=== PATIENT | female | born 1950 | race Caucasian/White ===

== ENCOUNTER 2017-07-13 20:13 | Inpatient (IN) | payer OTHER ==
[~2017-07-13] VITALS: Ht 152.4 cm; Wt 103.6 kg
[~2017-07-13 20:13] MED LIST: ASPI-435 PO; CALC500C70 PO; CARV12.52 PO; ERTA1INJ IV; FLUT50AE INH; HYZ/10015 PO; INSDGI SC; LISI-461 PO; LXP10 PO; MONT1TAB3 PO; MULT-506; NF1094 PO; NF656; NVLG; NVLGIPEN SC; NYSTCRE11; OXGN; POTA1POW; PRVC/40 PO; RSPS5 PO; SNTO30 TOP; SYMIN160 INH; VNTHFA/IN INH; ZNTT/150 PO
--- NOTE | 2017-07-13 20:30 | EMERGENCY ROOM VISIT NOTE ---
History Report prepared by Mayank: Melo Caba Under the Supervision of: Dr. Anat León D.O. First contact with patient: 20:18 Chief Complaint: RECTAL BLEEDING Stated Complaint: GI History of Present Illness The patient is a 67 year old female who presents to the Emergency Room with complaints of two episodes of rectal bleeding that began today. She was recently discharged with UTI, sepsis, and C-Diff two days ago. She followed up with [facility] and notes that she is doing well. However, she has been having diarrhea. Today, she had two episodes of diarrhea with dark red blood in the toilet bowl. She does not know if there were any clots present. She denies any fevers, chills, or abdominal pain/cramping. She is on 2L of oxygen at baseline. She has a PICC line in place for antibiotics. She notes that her appetite is improving. Source of History: patient Onset: Two days ago Position: other (GI) Symptom Intensity: 2 episodes Quality: other (Rectal Bleeding) Timing: intermittent Associated Symptoms: + diarrhea, No fevers, No chills, No abdominal pain Review of Systems See HPI for pertinent positives & negatives. A total of 10 systems reviewed and were otherwise negative. Past Medical & Surgical Medical Problems: (1) C. difficile colitis (2) Depression (3) Diabetes (4) Diabetes mellitus type 2, uncontrolled (5) Gastroparesis (6) UTI due to extended-spectrum beta lactamase (ESBL) producing Escherichia coli Surgical Problems: (1) Hx of cholecystectomy Family History Bladder cancer Diabetes mellitus Hypertension Myocardial infarction at age less than 60 Social History Smoking Status: Never Smoker Drug Use: none Marital Status: Occupation Status: retired Current/Historical Medications Scheduled Aspirin (Aspirin 81), 81 MG PO DAILY Bisacodyl (Bisacodyl), 10 MG FL DAILY Carvedilol (Coreg), 12.5 MG PO BID Collagenase (Santyl), 1 APPLN TOP DAILY Docusate Sodium (Docusate Sodium), 100 MG PO BID Ertapenem Sodium (Invanz), 1 GM IV Q24H Escitalopram Oxalate (Escitalopram Oxalate), 10 MG PO QAM Famotidine (Pepcid), 20 MG PO BID Fluticasone Furoate-Vilanterol (Breo Ellipta), 1 PUFF INH DAILY Glucagon (Glucagon Emergency Kit), 1 MG SC UD Hydrochlorothiazide (Hctz), 25 MG PO DAILY Insulin Aspart (Novolog Flexpen), 0 UNITS SC ACHS Insulin Glargine (Lantus), 15 UNITS SC QAM Lactobacillus Acidophilus (Floranex), 4 TAB PO TIDM Losartan Potassium (Cozaar), 100 MG PO DAILY Montelukast Sodium (Singulair), 10 MG PO DAILY Multiple Vitamins W/ Minerals (Multi Vitamin and Mineral), 1 TAB PO DAILY Potassium Chloride (Potassium Chloride ER), 20 MEQ PO DAILY Pravastatin Sod (Pravastatin Sodium), 40 MG PO HS Sennosides-Docusate Sodium (Docusate Sodium/Senna), 1 TAB PO QDL Vancomycin HCl (Vancomycin HCl), 125 MG PO QID Scheduled PRN Acetaminophen (Tylenol), 500 MG PO Q4 PRN for Pain Albuterol Hfa (Ventolin Hfa), 2-4 PUFFS INH Q6H PRN for Magnesium Hydroxide (Milk of Magnesia), 30 ML PO DAILY PRN for Polyethylene Glycol 3350 (Miralax), 17 GM PO DAILY PRN for Sodium Phosphates (Enema), 133 ML FL DAILY PRN for Miscellaneous Medications [Glucose Oral Gel], Unknown Dose Allergies Coded Allergies: Clarithromycin (Verified Allergy, Intermediate, RASH, 07/13/17) Doxycycline (Unverified Allergy, Intermediate, UNKNOWN, 07/13/17) Promethazine (Verified Allergy, Mild, MUSCLE CRAMPS, 07/13/17) Adhesives (Verified Allergy, Unknown, SKIN TEARS, 07/13/17) Clindamycin (Verified Allergy, Unknown, MUSCLE CRAMPS, 07/13/17) Simvastatin (Verified Allergy, Unknown, MUSCLE CRAMPS, 07/13/17) Sulfa Antibiotics (Verified Allergy, Unknown, RASH, 07/13/17) Erythromycin (Verified Adverse Reaction, Mild, NAUSEA, 07/13/17) Physical Exam Vital Signs Date Time Temp Pulse Resp B/P (MAP) Pulse Ox O2 Delivery O2 Flow Rate FiO2 07/13/17 22:37 89 17 140/68 100 Room Air 07/13/17 20:31 87 07/13/17 20:17 37.4 99 18 154/59 100 Nasal Cannula 2.0 Physical Exam GENERAL: alert, pale appearing, well nourished, no distress, non-toxic EYE EXAM: normal conjunctiva, PERRL and EOM's grossly intact OROPHARYNX: no exudate, no erythema, lips, buccal mucosa, and tongue normal and mucous membranes are moist NECK: supple, no nuchal rigidity, no adenopathy, non-tender LUNGS: Clear to auscultation. Normal chest wall mechanics HEART: no murmurs, S1 normal and S2 normal ABDOMEN: abdomen soft and obese, non-tender, normo-active bowel sounds, no masses, no rebound or guarding. BACK: Back is symmetrical on inspection and there is no deformity, no midline tenderness, no CVA tenderness. SKIN: no rashes and no bruising UPPER EXTREMITIES: upper extremities are grossly normal. LOWER EXTREMITIES: Trace bilateral pitting edema. N/V intact distally. NEURO EXAM: Normal sensorium, cranial nerves II-XII grossly intact, normal speech, no gross weakness of arms, no gross weakness of legs. Medical Decision & Procedures ER Provider Diagnostic Interpretation: ABD/PELVIS NO IV OR ORAL CONT CT DOSE: 1546.84 mGy.cm HISTORY: Bowel change gi bleed, recent c.diff, diarrhea TECHNIQUE: Multiaxial CT images of the abdomen and pelvis were performed without contrast. A dose lowering technique was utilized adhering to the principles of ALARA. COMPARISON STUDY: 07/06/2017 FINDINGS: Lung bases are clear. Liver spleen and pancreas are unremarkable. There is extensive calcification of the upper abdominal arterial vasculature. There are stable postoperative changes of the lumbar spine. There is no evidence renal hydronephrosis. There is fluid within the small bowel as well as colon. No evidence for bowel obstruction. Scattered colonic diverticuli with no evidence diverticulitis. Artifact obscuring detail within the low pelvis from bilateral total hip arthroplasties. IMPRESSION: 1. Fluid within the colon and to lesser extent small bowel suggesting a nonspecific enteritis and possibly colitis. 2. No evidence for obstructive change. 3. No evidence for abscess or collection. The above report was generated using voice recognition software. It may contain grammatical, syntax or spelling errors. Electronically signed by: Freddy Rodriguez M.D. 07/14/2017 6:42 AM Dictated Date/Time: 07/14/2017 6:38 AM Laboratory Results 07/13/17 20:22 Red Blood Count 2.87, Mean Corpuscular Volume 88.5, Mean Corpuscular Hemoglobin 28.6, Mean Corpuscular Hemoglobin Concent 32.3, Mean Platelet Volume 8.8, Neutrophils (%) (Auto) 69.5, Lymphocytes (%) (Auto) 18.9, Monocytes (%) (Auto) 8.2, Eosinophils (%) (Auto) 1.8, Basophils (%) (Auto) 0.2, Neutrophils # (Auto) 8.59, Lymphocytes # (Auto) 2.34, Monocytes # (Auto) 1.01, Eosinophils # (Auto) 0.22, Basophils # (Auto) 0.03 Test 07/13/17 20:22 07/13/17 20:23 White Blood Count 12.36 K/uL (4.8-10.8) Red Blood Count 2.87 M/uL (4.2-5.4) Hemoglobin 8.2 g/dL (12.0-16.0) Hematocrit 25.4 % (37-47) Mean Corpuscular Volume 88.5 fL (80-100) Mean Corpuscular Hemoglobin 28.6 pg (25-34) Mean Corpuscular Hemoglobin Concent 32.3 g/dl (32-36) Platelet Count 263 K/uL (130-400) Mean Platelet Volume 8.8 fL (7.4-10.4) Neutrophils (%) (Auto) 69.5 % Lymphocytes (%) (Auto) 18.9 % Monocytes (%) (Auto) 8.2 % Eosinophils (%) (Auto) 1.8 % Basophils (%) (Auto) 0.2 % Neutrophils # (Auto) 8.59 K/uL (1.4-6.5) Lymphocytes # (Auto) 2.34 K/uL (1.2-3.4) Monocytes # (Auto) 1.01 K/uL (0.11-0.59) Eosinophils # (Auto) 0.22 K/uL (0-0.5) Basophils # (Auto) 0.03 K/uL (0-0.2) RDW Standard Deviation 43.9 fL (36.4-46.3) RDW Coefficient of Variation 13.5 % (11.5-14.5) Immature Granulocyte % (Auto) 1.4 % Immature Granulocyte # (Auto) 0.17 K/uL (0.00-0.02) Polychromasia 1+ Prothrombin Time 12.1 SECONDS (9.0-12.0) Prothromb Time International Ratio 1.1 (0.9-1.1) Total Bilirubin 0.2 mg/dl (0.2-1) Aspartate Amino Transf (AST/SGOT) 19 U/L (15-37) Alanine Aminotransferase (ALT/SGPT) 24 U/L (12-78) Alkaline Phosphatase 92 U/L (45-117) Total Protein 6.1 gm/dl (6.4-8.2) Albumin 2.3 gm/dl (3.4-5.0) Globulin 3.8 gm/dl (2.5-4.0) Albumin/Globulin Ratio 0.6 (0.9-2) Lipase 113 U/L (73-393) Bedside Lactic Acid Venous 1.38 mmol/L (0.90-1.70) Laboratory results per my review. Medications Administered Medications (Trade) Dose Ordered Sig/Javon Route Start Time Stop Time Status Last Admin Dose Admin Lactated Ringer's 1,000 ml @ 200 mls/hr Q5H STAT IV 07/13/17 22:03 07/14/17 00:38 DC 07/13/17 22:03 200 MLS/HR ED Course 2018: The patient was evaluated in room C4. A complete history and physical exam was performed. 2156: The patient has had two more grossly bloody bowel movements. On reexamination, she denies any abdominal pain. 2202: Ordered Lactated Ringer's 1000 ml @ 200 mls/hr IV. Upon reevaluation, the patient is resting. I discussed the findings and the treatment plan with the patient. She expresses agreement and understanding. I spoke with Dr. Starks of the [facility]. She will be evaluated for further management. Medical Decision Differential diagnosis: Etiologies such as diverticulosis, AVM, coagulopathy, colitis, inflammatory bowel disease, malignancy, Tiffanie-Ross tear, esophagitis, peptic ulcer disease , variceal bleed, gastritis, epistaxis, fissure, hemorrhoids, as well as others were entertained. Patient with GI bleed noted here. Had 2 episodes of grossly bloody stool. No recurrent abdominal pain, no nausea or vomiting, no fevers or chills. Patient hemodynamically stable throughout. Patient still on an aspirin daily. Recent CT scan 1 week ago also showed moderate diverticulosis without diverticulitis. Possible patient now having diverticular bleed. Possible patient having bleed secondary to C. difficile colitis at this time. No current symptoms to suggest peptic ulcer disease or upper GI bleed. Patient H&H lower than at time of discharge also. No thrombocytopenia. No liver failure. Patient has denied noting blood from any other source. Patient admitted for continuing monitoring and possible GI evaluation. Renal dysfunction stable compared to prior. Medication Reconcilliation Current Medication List: was personally reviewed by me Blood Pressure Screening Patient's blood pressure: Elevated blood pressure Blood pressure disposition: Elevated BP felt to be situational Consults Time Called: 2199 Consulting Physician: Dr. Tereza TO Returned Call: [phone] I reviewed the patient's case with him. He will evaluate the patient for further management. Impression Primary Impression: GI bleed Additional Impressions: Diarrhea Anemia Renal insufficiency Hyperglycemia C. difficile colitis Scribe Attestation The scribe's documentation has been prepared under my direction and personally reviewed by me in its entirety. I confirm that the note above accurately reflects all work, treatment, procedures, and medical decision making performed by me. Departure Information Dispostion Being Evaluated By Hospitalist Shade Duarte (PCP) Patient Instructions My [facility] Problem Qualifiers Primary Impression: GI bleed GI bleed type/associated pathology: unspecified gastrointestinal hemorrhage type Qualified Codes: K92.2 - Gastrointestinal hemorrhage, unspecified Additional Impressions: Diarrhea Diarrhea type: unspecified type Qualified Codes: R19.7 - Diarrhea, unspecified Anemia Anemia type: unspecified type Qualified Codes: D64.9 - Anemia, unspecified
[2017-07-13 20:54] LABS: HEMATOCRIT 25.4 % (37-47); MEAN CELL VOLUME 88.5 fL (80-100); MEAN CORPUSCULAR HEMOGLOBIN 28.6 pg (25-34); MEAN CORPUSCULAR HGB CONC 32.3 g/dl (32-36); MEAN PLATELET VOLUME 8.8 fL (7.4-10.4); PLATELET COUNT 263 K/uL (130-400); RED BLOOD COUNT 2.87 M/uL (4.2-5.4); WHITE BLOOD COUNT 12.36 K/uL (4.8-10.8)
[2017-07-13 21:04] LABS: INR 1.1 (0.9-1.1); PROTHROMBIN TIME (PATIENT) 12.1 SECONDS (9.0-12.0)
[2017-07-13 21:12] LABS: CALCIUM 7.9 mg/dl (8.5-10.1); CREATININE 1.47 mg/dl (0.60-1.20); POTASSIUM 4.2 mmol/L (3.5-5.1)
[2017-07-13 21:14] LABS: BASO % 0.2 %; BASO ABS # 0.03 K/uL (0-0.2); COMPLETE YES; EOS % 1.8 %; IG% 1.4 %; LYMPH % 18.9 %; LYMPH ABS # 2.34 K/uL (1.2-3.4); MONO % 8.2 %; NEUT % 69.5 %; POLYCHROMASIA 1+
[2017-07-13 21:15] LABS: ALB/GLOB RATIO 0.6 (0.9-2)
[2017-07-13] MEDS ORDERED: MOMLX PO (21:27)
[2017-07-13] MEDS ORDERED: HYDR25TA4 PO (21:27)
[2017-07-13] MEDS ORDERED: ACET-1256 PO (21:27)
[2017-07-13] MEDS ORDERED: GLUCOSE (21:27)
[2017-07-13] MEDS ORDERED: LCTX PO (21:27)
[2017-07-13] MEDS ORDERED: FAMO20TA11 PO (21:27)
[2017-07-13] MEDS ORDERED: POLY335019 PO (21:27)
[2017-07-13] MEDS ORDERED: SENN8.6T36 PO (21:27)
[2017-07-13] MEDS ORDERED: FLUT1INH INH (21:27)
[2017-07-13] MEDS ORDERED: MCRK/20 PO (21:27)
[2017-07-13] MEDS ORDERED: LOSA1TAB38 PO (21:27)
[2017-07-13] MEDS ORDERED: DOCU100C31 PO (21:27)
[2017-07-13] MEDS ORDERED: GLGKIT SC (21:27)
[2017-07-13] MEDS ORDERED: MULT-1042 PO (21:27)
[2017-07-13] MEDS ORDERED: BISA10SU5 PR (21:27)
[2017-07-13] MEDS ORDERED: SODI1ENE21 PR (21:27)
[2017-07-13] MEDS ORDERED: LACTATED RINGER'S 1000ML 1,000 ML IV STA (22:03)
--- NOTE | 2017-07-13 22:27 | History and Physical ---
History & Physical Date & Time of Service: Jul 13, 2017 at 22:15 Chief Complaint: GI Primary Care Physician: Shade Riddle History of Present Illness Source: patient 67 y/o F Hx COPD, HTN, CAD, DMII, gastroparesis, CKD III, anemia, obese - recently D/Cd following admission for Urosepsis with ESBL in addition to Cdiff which emerged during hospitalization. Pt has had persistent diarrhea for over one wk and today developed hematochezia describing dark, red bowel movements. She denies abdominal pain, N/V, lightheadedness, palpitations or fevers. The pt has a port owing to long-term treatment for ESBL with Ertapenem. She is taking oral Vancomycin for C-diff. It is noted that in May 22 the pt was life-flighted to [place] due to critical PNM and had spent 2 weeks in rehab when she was transferred back to the hospital due to the above UTI. Past Medical/Surgical History 1) DM II 2) DONG - CPAP 3) COPD 2-4 L 02 continuous 4) Asthma 5) HTN 6) CAD s/p 1 stent 7) HLD 8) GERD 9) Gastroparesis 10) CKD III 11) Anemia - baseline Hb 10 12) C diff 06/21 13) ESBL UTI 06/21 14) Obese Family History Bladder cancer Diabetes mellitus Hypertension Myocardial infarction at age less than 60 Social History Smoking Status: Never Smoker Drug Use: none Marital Status: Housing status: lives with significant other Occupational Status: retired Immunizations History of Influenza Vaccine: Yes History of Tetanus Vaccine?: Yes History of Pneumococcal: Yes History of Hepatitis B Vaccine: Yes Multi-Drug Resistant Organisms History of MDRO: No Allergies Coded Allergies: Clarithromycin (Verified Allergy, Intermediate, RASH, 07/13/17) Doxycycline (Unverified Allergy, Intermediate, UNKNOWN, 07/13/17) Promethazine (Verified Allergy, Mild, MUSCLE CRAMPS, 07/13/17) Adhesives (Verified Allergy, Unknown, SKIN TEARS, 07/13/17) Clindamycin (Verified Allergy, Unknown, MUSCLE CRAMPS, 07/13/17) Simvastatin (Verified Allergy, Unknown, MUSCLE CRAMPS, 07/13/17) Sulfa Antibiotics (Verified Allergy, Unknown, RASH, 07/13/17) Erythromycin (Verified Adverse Reaction, Mild, NAUSEA, 07/13/17) Home Medications Scheduled Aspirin (Aspirin 81), 81 MG PO DAILY Bisacodyl (Bisacodyl), [address] DAILY Carvedilol (Coreg), 12.5 MG PO BID Collagenase (Santyl), 1 APPLN TOP DAILY Docusate Sodium (Docusate Sodium), 100 MG PO BID Ertapenem Sodium (Invanz), 1 GM IV Q24H Escitalopram Oxalate (Escitalopram Oxalate), 10 MG PO QAM Famotidine (Pepcid), 20 MG PO BID Fluticasone Furoate-Vilanterol (Breo Ellipta), 1 PUFF INH DAILY Glucagon (Glucagon Emergency Kit), 1 MG SC UD Hydrochlorothiazide (Hctz), 25 MG PO DAILY Insulin Aspart (Novolog Flexpen), 0 UNITS SC ACHS Insulin Glargine (Lantus), 15 UNITS SC QAM Lactobacillus Acidophilus (Floranex), 4 TAB PO TIDM Losartan Potassium (Cozaar), 100 MG PO DAILY Montelukast Sodium (Singulair), 10 MG PO DAILY Multiple Vitamins W/ Minerals (Multi Vitamin and Mineral), 1 TAB PO DAILY Potassium Chloride (Potassium Chloride ER), 20 MEQ PO DAILY Pravastatin Sod (Pravastatin Sodium), 40 MG PO HS Sennosides-Docusate Sodium (Docusate Sodium/Senna), 1 TAB PO QDL Vancomycin HCl (Vancomycin HCl), 125 MG PO QID Scheduled PRN Acetaminophen (Tylenol), 500 MG PO Q4 PRN for Pain Albuterol Hfa (Ventolin Hfa), 2-4 PUFFS INH Q6H PRN for Magnesium Hydroxide (Milk of Magnesia), 30 ML PO DAILY PRN for Polyethylene Glycol 3350 (Miralax), 17 GM PO DAILY PRN for Sodium Phosphates (Enema), [address] DAILY PRN for Miscellaneous Medications [Glucose Oral Gel], Unknown Dose Review of Systems Constitutional: No fever, No chills, No sweats Eyes: No worsening of vision ENT: No hearing loss, No unusual epistaxis, No nasal symptoms Respiratory: No cough, No sputum, No wheezing Cardiovascular: No chest pain, No PND Abdomen: + diarrhea, + GI bleeding, No pain, No vomiting Musculoskeletal: No joint pain Genitourinary - Female: No dysuria, No urinary frequency, No urinary urgency, No urinary incontinence Neurologic: No memory loss, No paralysis, No weakness Psychiatric: No depression symptoms Endocrine: No fatigue Hematologic / Lymphatic: No abnormal bleeding/bruising Integumentary: No rash Allergic / Immunologic: No environmental allergies Physical Exam Vital Signs Date Time Temp Pulse Resp B/P (MAP) Pulse Ox O2 Delivery O2 Flow Rate FiO2 07/13/17 20:31 87 07/13/17 20:17 37.4 99 18 154/59 100 Nasal Cannula 2.0 General Appearance: WD/WN, no apparent distress Head: normocephalic Eyes: normal inspection ENT: normal ENT inspection, pharynx normal Neck: supple, no JVD Respiratory/Chest: chest non-tender, + pertinent finding (Poor air entry and moveemnt b/l - no crackles or wheezing ) Cardiovascular: regular rate, rhythm, no edema, no gallop Abdomen/GI: normal bowel sounds, non tender, soft Back: normal inspection, no CVA tenderness Extremities/Musculoskelatal: normal inspection, no calf tenderness, normal capillary refill, no pedal edema, normal range of motion Neurologic/Psych: public relations sales marketing II-XII nml as tested, no motor/sensory deficits, alert, oriented x 3 Skin: normal color, warm/dry Lymphatic: no adenopathy Diagnostics Laboratory Results Results Past 24 Hours Test 07/13/17 20:22 07/13/17 20:23 Range/Units White Blood Count 12.36 4.8-10.8 K/uL Red Blood Count 2.87 4.2-5.4 M/uL Hemoglobin 8.2 12.0-16.0 g/dL Hematocrit 25.4 37-47 % Mean Corpuscular Volume 88.5 80-100 fL Mean Corpuscular Hemoglobin 28.6 25-34 pg Mean Corpuscular Hemoglobin Concent 32.3 32-36 g/dl Platelet Count 263 130-400 K/uL Mean Platelet Volume 8.8 7.4-10.4 fL Neutrophils (%) (Auto) 69.5 % Lymphocytes (%) (Auto) 18.9 % Monocytes (%) (Auto) 8.2 % Eosinophils (%) (Auto) 1.8 % Basophils (%) (Auto) 0.2 % Neutrophils # (Auto) 8.59 1.4-6.5 K/uL Lymphocytes # (Auto) 2.34 1.2-3.4 K/uL Monocytes # (Auto) 1.01 0.11-0.59 K/uL Eosinophils # (Auto) 0.22 0-0.5 K/uL Basophils # (Auto) 0.03 0-0.2 K/uL RDW Standard Deviation 43.9 36.4-46.3 fL RDW Coefficient of Variation 13.5 11.5-14.5 % Immature Granulocyte % (Auto) 1.4 % Immature Granulocyte # (Auto) 0.17 0.00-0.02 K/uL Polychromasia 1+ Prothrombin Time 12.1 9.0-12.0 SECONDS Prothromb Time International Ratio 1.1 0.9-1.1 Sodium Level 139 136-145 mmol/L Potassium Level 4.2 3.5-5.1 mmol/L Chloride Level 100 98-107 mmol/L Carbon Dioxide Level 33 21-32 mmol/L Anion Gap 6.0 3-11 mmol/L Blood Urea Nitrogen 31 7-18 mg/dl Creatinine 1.47 0.60-1.20 mg/dl Est Creatinine Clear Calc Drug Dose 39.7 ml/min Estimated GFR () 42.1 Estimated GFR (Non- 36.3 BUN/Creatinine Ratio 21.0 10-20 Random Glucose 229 70-99 mg/dl Calcium Level 7.9 8.5-10.1 mg/dl Total Bilirubin 0.2 0.2-1 mg/dl Aspartate Amino Transf (AST/SGOT) 19 15-37 U/L Alanine Aminotransferase (ALT/SGPT) 24 12-78 U/L Alkaline Phosphatase 92 45-117 U/L Total Protein 6.1 6.4-8.2 gm/dl Albumin 2.3 3.4-5.0 gm/dl Globulin 3.8 2.5-4.0 gm/dl Albumin/Globulin Ratio 0.6 0.9-2 Lipase 113 73-393 U/L Bedside Lactic Acid Venous 1.38 0.90-1.70 mmol/L Impression Assessment and Plan 67 y/o F Hx COPD, HTN, CAD, DMII, gastroparesis, CKD III, anemia, obese - recently D/Cd following admission for Urosepsis with ESBL in addition to Cdiff which emerged during hospitalization. Pt has had persistent diarrhea for over one wk and today developed hematochezia describing dark, red bowel movements. She denies abdominal pain, N/V, lightheadedness, palpitations or fevers. The pt has a port owing to long-term treatment for ESBL with Ertapenem. She is taking oral Vancomycin for C-diff. It is noted that in May 22 the pt was life-flighted to [place] due to critical PNM and had spent 2 weeks in rehab when she was transferred back to the hospital due to the above UTI. 1) GI bleed and anemia - Hb has decreased 2 pts - source of bleed, upper vs lower not clear as stool is dark red. We will obtain a CT abdomen and if no lower GI pathology is obvious, we will place her on a PPi drip - a bolus was provided pending results. GI and possibly surgery will be consulted. She has a history of CAD and CKD and a recent tendency to decompensate so that we will transfuse 2 units PRBCs. She will be assigned to telemetry overnight. 2) C diff - stool studies will be repeated - she will remain on Vanc - if + we will add Flagyl and would consider more aggressive treatment if colitis is present on imaging. 3) ESBL UTI - cont Ertapenem 4) COPD - no evidence of acute exacerbation - denies SOB above baseline - cont prescribed inhalers and an 02 protocol 5) CKD - creat is approximately at baseline - we will trend daily 6) CAD - no evidence of ACS - ASA is held - assigned to telemetry 7) DONG - CPAP provided HS 8) DM II - placed on SS Full code - Heparin prophylaxis Total time for this admit including review of recent record, labs, meds - discussion with pt and ER attending 45 min Level of Care Telemetry Resuscitation Status FULL RESUSCITATION VTE Prophylaxis Given or contraindicated: SCD's
[2017-07-13] MEDS ORDERED: ERTAPENEM 1 GM ADDVIAL IV SCH (22:30)
[2017-07-13] MEDS ORDERED: ALBUTEROL HFA 8 GM INHALER INH PRN (22:30)
[2017-07-13] MEDS ORDERED: MAGNESIUM HYDROXIDE SUSP 30 ML UDC PO PRN ×2 (22:30→23:00)
[2017-07-13] MEDS ORDERED: ONDANSETRON INJ 2 MG/ML 2 ML VIAL IV PRN (23:00)
[2017-07-13] MEDS ORDERED: ZOLPIDEM TARTRATE 5 MG TAB PO PRN (23:00)
[2017-07-13] MEDS ORDERED: ALUMINUM/MAGNESIUM/SIMETH (MAALOX MAX) 30 ML UDC PO PRN (23:00)
[2017-07-13] MEDS ORDERED: ACETAMINOPHEN 325 MG TAB PO PRN (23:00)
[2017-07-13] MEDS ORDERED: MAGNESIUM SULFATE 1GM / D5W 1 GM in PREMIXED IN D5W 100 ML IV STA (23:01)
[2017-07-13] MEDS ORDERED: MAGNESIUM SULFATE 1GM / D5W 1 GM BAG ONE (23:15)
[2017-07-13 23:34] VITALS: BP 184/83; PULSE 83; TEMP 36.8; O2SAT 96; BMI 43.0
[2017-07-14] VITALS (15 sets, daily range): BP systolic 122–169; BP diastolic 74–85; PULSE 65–79; TEMP 36.5–37.2; O2SAT 94–98
[2017-07-14] MEDS ORDERED: PANTOprazole INJ 80 MG in DEXTROSE 5% 100ML 100 ML IV ONE (01:00)
[2017-07-14] MEDS: INSULIN ASPART 100 UNITS/ML 3 ML PEN SC SCH ×4 (01:28→20:31)
[2017-07-14] MEDS: PANTOprazole INJ 40 MG in DEXTROSE 5% 100ML IV SCH ×2 (03:04→10:15)
[2017-07-14 04:34] LABS: CALCIUM 7.7 mg/dl (8.5-10.1); CREATININE 1.51 mg/dl (0.60-1.20); MAGNESIUM 1.3 mg/dl (1.8-2.4); POTASSIUM 4.3 mmol/L (3.5-5.1)
[2017-07-14] MEDS: MAGNESIUM SULFATE 1GM / D5W 1 GM in PREMIXED IN D5W 100 ML IV SCH ×4 (05:34→10:28)
--- NOTE | 2017-07-14 06:43 | DIAGNOSTIC IMAGING REPORT ---
ABD/PELVIS NO IV OR ORAL CONT CT DOSE: 1546.84 mGy.cm HISTORY: Bowel change gi bleed, recent c.diff, diarrhea TECHNIQUE: Multiaxial CT images of the abdomen and pelvis were performed without contrast. A dose lowering technique was utilized adhering to the principles of ALARA. COMPARISON STUDY: 07/06/2017 FINDINGS: Lung bases are clear. Liver spleen and pancreas are unremarkable. There is extensive calcification of the upper abdominal arterial vasculature. There are stable postoperative changes of the lumbar spine. There is no evidence renal hydronephrosis. There is fluid within the small bowel as well as colon. No evidence for bowel obstruction. Scattered colonic diverticuli with no evidence diverticulitis. Artifact obscuring detail within the low pelvis from bilateral total hip arthroplasties. IMPRESSION: 1. Fluid within the colon and to lesser extent small bowel suggesting a nonspecific enteritis and possibly colitis. 2. No evidence for obstructive change. 3. No evidence for abscess or collection. The above report was generated using voice recognition software. It may contain grammatical, syntax or spelling errors. Electronically signed by: Freddy Rodriguez M.D. 07/14/2017 6:42 AM Dictated Date/Time: 07/14/2017 6:38 AM
[2017-07-14] MEDS: BISACODYL 10 MG SUPP PR SCH (08:16)
[2017-07-14] MEDS: MONTELUKAST SOD 10 MG TAB PO SCH (08:21)
[2017-07-14] MEDS: FAMOTIDINE 20 MG TAB PO SCH ×2 (08:21→19:52)
[2017-07-14] MEDS: CARVEDILOL 12.5 MG TAB PO SCH ×2 (08:21→19:52)
[2017-07-14] MEDS: COLLAGENASE OINT 30 GM TUBE EXT SCH (08:22)
[2017-07-14] MEDS: LOSARTAN POTASSIUM 50 MG TAB PO SCH (08:22)
[2017-07-14] MEDS: ESCITALOPRAM OXALATE 10 MG TAB PO SCH (08:22)
[2017-07-14] MEDS: RASPBERRY SYRUP 5 ML UDP PO SCH ×4 (08:24→20:27)
[2017-07-14] MEDS ORDERED: VANCOMYCIN HCL 250 MG/5 ML SOLN PO SCH (09:00)
[2017-07-14] MEDS ORDERED: POTASSIUM CHLORIDE 20 MEQ TABCR PO SCH (09:00)
[2017-07-14] MEDS ORDERED: RASPBERRY SYRUP 5 ML UDP PO SCH (09:00)
[2017-07-14] MEDS: VANCOMYCIN HCL 125 MG/2.5ML SOLN PO SCH ×4 (09:00→20:27)
--- NOTE | 2017-07-14 09:54 | Gastrointestinal Consultation ---
Gastrointestinal Consultation Date of Consultation: Jul 14, 2017 Attending Physician: Dr. Guidry Consulting Physician: Marlyn Vazquez PA-C Reason for Consultation: "hematochezia & C diff" History of Present Illness Patient is a 67 year old female with a past medical history of COPD, CAD, HTN, DM2, gastroparesis, CKD 3, anemia & morbid obesity who presented back to the hospital after a recent admission for UTI sepsis with ESBL. During that visit she was diagnosed with C diff She has been on Vancomycin since 07/08. She reports she has diarrhea 5-6 times per day, however she reports that since hospitalization she has not been having stool, just bleeding. She reports to me that she is having dark black stools that have occurred on several occasions since last night. Physician reports indicate hematochezia and nursing reports a esthela-like stool. She denies abdominal pain. She had an unremarkable CT scan. She reports her last colonoscopy was 2 years ago and was performed by Dr. Wright of general surgery in [place]. She reports that the only unusual finding was diverticulosis. She denies fevers or chills at present. She reports a daily baby Aspirin 81 mg daily. She denies a family history of GI malignancy. She is on Protonix at the present time. She continues on Vancomycin for her C diff. Her H/H was 8.2/25.4 last evening. Her baseline is unclear as we do not have access to her outpatient records. Since transfusion of 2 units PRBCs her hemoglobin has improved to 9.4. A CT scan of her abdomen/pelvis indicates colitis. She offers no further complaints at present. Past Medical/Surgical History Medical Problems: (1) Acute renal failure Status: Acute (2) Anemia Status: Acute (3) Dehydration Status: Acute (4) Diarrhea Status: Acute (5) GI bleed Status: Acute (6) Hyperglycemia Status: Acute (7) Hypomagnesemia Status: Acute (8) Renal insufficiency Status: Acute (9) UTI (urinary tract infection) Status: Acute Past Medical History: Diabetes Mellitus type 2, DONG, COPD on 2-4 L O2 continuously, asthma, hypertension, CAD, HLD, GERD, gastroparesis, CKD 3, anemia with a report in the chart of a baseline of 10, C diff ongoing since 06/21, ESBL UTI, Morbid obesity Past Surgical History: Cardiac stenting, EGD, Colonoscopy Family History Bladder cancer Diabetes mellitus Hypertension Myocardial infarction at age less than 60 Social History Smoking Status: Never Smoker Drug Use: none Marital Status: Occupation Status: retired Allergies Coded Allergies: Clarithromycin (Verified Allergy, Intermediate, RASH, 07/13/17) Doxycycline (Unverified Allergy, Intermediate, UNKNOWN, 07/13/17) Promethazine (Verified Allergy, Mild, MUSCLE CRAMPS, 07/13/17) Adhesives (Verified Allergy, Unknown, SKIN TEARS, 07/13/17) Clindamycin (Verified Allergy, Unknown, MUSCLE CRAMPS, 07/13/17) Simvastatin (Verified Allergy, Unknown, MUSCLE CRAMPS, 07/13/17) Sulfa Antibiotics (Verified Allergy, Unknown, RASH, 07/13/17) Erythromycin (Verified Adverse Reaction, Mild, NAUSEA, 07/13/17) Current Medications Home Meds and Scripts Medications Dose Route/Sig Max Daily Dose Days Date Category Dose Instructions Enema (Sodium Phosphates) 1 Clarita Clarita 133 Ml AR DAILY PRN 07/13/17 Reported Miralax (Polyethylene Glycol 3350) 1 Pow Pow 17 Gm PO DAILY PRN 07/13/17 Reported Milk of Magnesia (Magnesium Hydroxide) 30 Ml Susp 30 Ml PO DAILY PRN 07/13/17 Reported [Glucose Oral Gel] Unknown Dose 07/13/17 Reported Glucagon Emergency Kit (Glucagon) 1 Mg Kit 1 Mg SC UD 07/13/17 Reported Docusate Sodium 100 Mg Cap 100 Mg PO BID 07/13/17 Reported Bisacodyl 10 Mg Sup 10 Mg AR DAILY 07/13/17 Reported Tylenol (Acetaminophen) 500 Mg Tab 500 Mg PO Q4 PRN 07/13/17 Reported Potassium Chloride ER (Potassium Chloride) 20 Meq Tabcr 20 Meq PO DAILY 07/13/17 Reported Cozaar (Losartan Potassium) 100 Mg Tab 100 Mg PO DAILY 07/13/17 Reported Floranex (Lactobacillus Acidophilus) 1 Tab Tab 4 Tab PO TIDM 07/13/17 Reported LACTOBACILLUS ACIDOPHILLUS AND BULGARICUS Hctz (Hydrochlorothiazide) 25 Mg Tab 25 Mg PO DAILY 07/13/17 Reported Breo Ellipta (Fluticasone Furoate-Vilanterol) 1 Inh Inh 1 Puff INH DAILY 07/13/17 Reported Pepcid (Famotidine) 20 Mg Tab 20 Mg PO BID 07/13/17 Reported Docusate Sodium/Senna (Sennosides-Docusate Sodium) 1 Tab Tab 1 Tab PO QDL 07/13/17 Reported Multi Vitamin and Mineral (Multiple Vitamins W/ Minerals) 1 Tab Tab 1 Tab PO DAILY 07/13/17 Reported Novolog Flexpen (Insulin Aspart) 100 Units/Ml Inj 0 Units SC ACHS 30 07/11/17 Rx Escitalopram Oxalate 10 Mg Tab 10 Mg PO QAM 30 07/11/17 Rx Invanz (Ertapenem Sodium) 1 Gm Inj 1 Gm IV Q24H 12 07/11/17 Rx Vancomycin HCl 100 Mg/Ml Inj 125 Mg PO QID 12 07/11/17 Rx Lantus (Insulin Glargine) 100 Unit/Ml Inj 15 Units SC QAM 07/06/17 Reported Santyl (Collagenase) 250 Unit/Gm Oin 1 Appln TOP DAILY 07/06/17 Reported Coreg (Carvedilol) 12.5 Mg Tab 12.5 Mg PO BID 90 07/06/17 Reported Aspirin 81 (Aspirin) 81 Mg Tab 81 Mg PO DAILY 07/06/17 Reported Ventolin Hfa (Albuterol) 200 Puffs/01283 Mcg Aers 2-4 Puffs INH Q6H PRN 07/06/17 Reported Singulair (Montelukast Sodium) 10 Mg Tab 10 Mg PO DAILY 06/20/14 Reported Pravastatin Sodium (Pravastatin Sod) 40 Mg Tab 40 Mg PO HS 06/20/14 Reported Review of Systems Constitutional: No fever, No chills, No weakness Eyes: No problem reported Respiratory: + dyspnea on exertion, No cough Cardiac: No chest pain Abdomen: + diarrhea, + GI bleeding, No pain, No nausea, No vomiting, No constipation Musculoskeletal: No joint pain Psych: No problem reported Skin: No problem reported Physical Exam Date Time Temp Pulse Resp B/P (MAP) Pulse Ox O2 Delivery O2 Flow Rate FiO2 07/14/17 07:13 37.2 70 18 166/78 (107) 96 Nasal Cannula 2.0 07/14/17 06:30 37.1 65 16 144/77 97 2.0 07/14/17 06:23 37.1 65 15 122/85 97 2.0 07/14/17 05:23 37.1 74 17 151/82 97 2.0 07/14/17 04:53 36.7 74 16 156/82 96 2.0 07/14/17 04:38 36.7 71 20 147/80 97 2.0 07/14/17 04:00 96 Room Air 2.0 07/14/17 02:40 36.7 75 17 160/80 96 2.0 07/14/17 01:40 36.8 72 18 160/83 98 2.0 07/14/17 01:10 36.8 74 20 159/83 98 2.0 07/14/17 00:55 36.7 76 20 155/85 98 2.0 07/13/17 23:34 36.8 83 20 184/83 96 Nasal Cannula 2.0 07/13/17 23:24 76 18 141/75 99 07/13/17 22:37 89 17 140/68 100 Room Air 07/13/17 20:31 87 07/13/17 20:17 37.4 99 18 154/59 100 Nasal Cannula 2.0 General Appearance: no apparent distress Eyes: normal inspection, PERRL Respiratory/Chest: + decreased breath sounds Cardiovascular: regular rate, rhythm Abdomen: normal bowel sounds, non tender, soft Extremities: non-tender Neurologic/Psych: alert, oriented x 3 Skin: normal color Laboratory Results Last 24 Hours Test 07/13/17 20:22 07/13/17 20:23 07/14/17 00:27 07/14/17 03:53 White Blood Count 12.36 K/uL Red Blood Count 2.87 M/uL Hemoglobin 8.2 g/dL 8.6 g/dL Hematocrit 25.4 % Mean Corpuscular Volume 88.5 fL Mean Corpuscular Hemoglobin 28.6 pg Mean Corpuscular Hemoglobin Concent 32.3 g/dl Platelet Count 263 K/uL Mean Platelet Volume 8.8 fL Neutrophils (%) (Auto) 69.5 % Lymphocytes (%) (Auto) 18.9 % Monocytes (%) (Auto) 8.2 % Eosinophils (%) (Auto) 1.8 % Basophils (%) (Auto) 0.2 % Neutrophils # (Auto) 8.59 K/uL Lymphocytes # (Auto) 2.34 K/uL Monocytes # (Auto) 1.01 K/uL Eosinophils # (Auto) 0.22 K/uL Basophils # (Auto) 0.03 K/uL RDW Standard Deviation 43.9 fL RDW Coefficient of Variation 13.5 % Immature Granulocyte % (Auto) 1.4 % Immature Granulocyte # (Auto) 0.17 K/uL Polychromasia 1+ Prothrombin Time 12.1 SECONDS Prothromb Time International Ratio 1.1 Sodium Level 139 mmol/L 139 mmol/L Potassium Level 4.2 mmol/L 4.3 mmol/L Chloride Level 100 mmol/L 100 mmol/L Carbon Dioxide Level 33 mmol/L 34 mmol/L Anion Gap 6.0 mmol/L 5.0 mmol/L Blood Urea Nitrogen 31 mg/dl 32 mg/dl Creatinine 1.47 mg/dl 1.51 mg/dl Est Creatinine Clear Calc Drug Dose 39.7 ml/min 37.9 ml/min Estimated GFR () 42.1 40.7 Estimated GFR (Non- 36.3 35.1 BUN/Creatinine Ratio 21.0 21.0 Random Glucose 229 mg/dl 223 mg/dl Calcium Level 7.9 mg/dl 7.7 mg/dl Total Bilirubin 0.2 mg/dl Aspartate Amino Transf (AST/SGOT) 19 U/L Alanine Aminotransferase (ALT/SGPT) 24 U/L Alkaline Phosphatase 92 U/L Total Protein 6.1 gm/dl Albumin 2.3 gm/dl Globulin 3.8 gm/dl Albumin/Globulin Ratio 0.6 Lipase 113 U/L Bedside Lactic Acid Venous 1.38 mmol/L Bedside Glucose 244 mg/dl Magnesium Level 1.3 mg/dl Test 07/14/17 05:20 07/14/17 07:42 Bedside Glucose 212 mg/dl Hemoglobin 9.4 g/dL Impression Patient is a 67 year old female with reported lower GI bleeding & history of C diff, ongoing since 06/21. She has had a CT scan that indicated colitis. Her hemoglobin is presently 9.4 since transfusion of 2 units PRBCs. Plan 1) Continue Vancomycin 125 mg po QID 2) Given continued use of antibiotics for UTI, consider implementation of probiotic. 3) IV Protonix 40 mg BID. 4) Given multiple descriptions of bleeding, it is unclear as to whether an upper GI source can be ruled out. Can proceed with an EGD today for further evaluation. If no findings, could consider a colonoscopy on 07/15, however given active C diff infection this is not ideal. C diff itself can cause lower GI bleeding as well. 5) Continued monitoring of H/H & supportive care per primary team. Thank you for allowing us to participate in the care of this patient. If you should have any further questions or concerns, do not hesitate to contact us. Agree with DUNCAN Isaac as above Abd: Soft, NT, ND, +BS Proceed with EGD today Continue current therapy
[2017-07-14] MEDS: ERTAPENEM IV 1 GM in SODIUM CHLOR 0.9% AD-VAN 50ML IV SCH (12:00)
[2017-07-14] MEDS ORDERED: PROPOFOL IV EMULSION 10 MG/ML 20 ML VIAL IV ONE (17:04)
[2017-07-14] MEDS ORDERED: LIDOCAINE HCL 2% 2 ML VIAL (20MG/ML) ONE (17:04)
--- NOTE | 2017-07-14 17:17 | GI REPORT ---
Procedure Date: 07/14/2017 4:46 PM Procedure: Upper GI endoscopy Indications: Melena Medicines: Monitored Anesthesia Care Complications: No immediate complications. Estimated Blood Loss: Estimated blood loss: none. Procedure: Pre-Anesthesia Assessment: - Prior to the procedure, a History and Physical was performed, and patient medications and allergies were reviewed. The patient's tolerance of previous anesthesia was also reviewed. The risks and benefits of the procedure and the sedation options and risks were discussed with the patient. All questions were answered, and informed consent was obtained. Prior Anticoagulants: The patient has taken aspirin, last dose was 1 day prior to procedure. ASA Grade Assessment: III - A patient with severe systemic disease. After reviewing the risks and benefits, the patient was deemed in satisfactory condition to undergo the procedure. After obtaining informed consent, the endoscope was passed under direct vision. Throughout the procedure, the patient's blood pressure, pulse, and oxygen saturations were monitored continuously. The scope was introduced through the mouth, and advanced to the second part of duodenum. The upper GI endoscopy was accomplished without difficulty. The patient tolerated the procedure well. Findings: The esophagus was normal. Many non-bleeding cratered gastric ulcers with no stigmata of bleeding were found in the gastric antrum. The largest lesion was 2 mm in largest dimension. Biopsies were taken with a cold forceps for histology. The examined duodenum was normal. Impression: - Normal esophagus. - Non-bleeding gastric ulcers with no stigmata of bleeding. Biopsied. - Normal examined duodenum. Recommendation: - Return patient to [facility] for ongoing care. - Use sucralfate tablets 1 gram PO QID for 10 days. - Advance diet as tolerated. - Await pathology results. Rohan Do, 07/14/2017 5:17:31 PM This report has been signed electronically. Note Initiated On: 07/14/2017 4:46 PM I attest to the content of the Intraoperative Record and orders documented therein, exceptions below
--- NOTE | 2017-07-14 17:21 | Medical Student: [facility] ---
Med Student History & Physical Date & Time of Service: Jul 14, 2017 at 16:33 Chief Complaint: C Difficile Colitis, Gi Bleed Primary Care Physician: Shade Riddle History of Present Illness Source: patient, hospital records, EMS Janeth is a 67yo female with past medical history of DM2, COPD, HTN, CAD s/p 1 stent, hyperlipidemia, GERD, CKD3, recent ESBL bacteremia discharge and current treatment and recent C. diff infection and treatment who presents to the ED for blood in her stool in the setting of 1 week of diarrhea from toxin positive C. diff infection. She was recently hospitalized for a UTI and blood culture grew ESBL bacteria, and she has been treated with ertapenem IV and end of treatment will be on 22Jul2017. She was also found to have C. diff colitis and was started on oral Vancomycin during hospitalization and will finish on 22Jul2017. She describes having black stool, bright red stools, and dark red stools. BM's are painless. There is no abdominal pain, has not had this happen before, has not had weight loss, no fever, chills, n/v, constipation , rectal pain, urinary pain, incontinence, altered mental status, or passing out /lightheadedness. Denies family history of IBD. Mentions having diverticula seen on colonoscopy a year or 2 ago. No polyps or cancerous lesions, per patient. Initial abdominal CT showed fluid in colon, suggestive of enteritis or colitis, no obstructions or abscesses. She was anemic at presentation and has received 2 units pRBCs with improvement from 8.2 to 9.4 Hgb. WBC of 12.36. Past Medical/Surgical History Medical Problems: (1) Acute renal failure Status: Acute (2) Anemia Status: Acute (3) Dehydration Status: Acute (4) Diarrhea Status: Acute (5) GI bleed Status: Acute (6) Hyperglycemia Status: Acute (7) Hypomagnesemia Status: Acute (8) Renal insufficiency Status: Acute (9) UTI (urinary tract infection) Status: Acute Family History Notable for bladder cancer, diabetes, hypertension, and [place] in <60 yo Social History Smoking Status: Former Smoker (2 pack years, quit 34 years ago) Alcohol Use: none Drug Use: none Marital Status: Housing status: lives with significant other Occupational Status: retired Immunizations History of Influenza Vaccine: Yes History of Tetanus Vaccine?: Yes History of Pneumococcal: Yes History of Hepatitis B Vaccine: Yes Allergies Coded Allergies: Clarithromycin (Verified Allergy, Intermediate, RASH, 07/13/17) Doxycycline (Unverified Allergy, Intermediate, UNKNOWN, 07/13/17) Promethazine (Verified Allergy, Mild, MUSCLE CRAMPS, 07/13/17) Adhesives (Verified Allergy, Unknown, SKIN TEARS, 07/13/17) Clindamycin (Verified Allergy, Unknown, MUSCLE CRAMPS, 07/13/17) Simvastatin (Verified Allergy, Unknown, MUSCLE CRAMPS, 07/13/17) Sulfa Antibiotics (Verified Allergy, Unknown, RASH, 07/13/17) Erythromycin (Verified Adverse Reaction, Mild, NAUSEA, 07/13/17) Medications Acetaminophen (Tylenol), 500 MG PO Q4 PRN for Pain Albuterol Hfa (Ventolin Hfa), 2-4 PUFFS INH Q6H PRN for Aspirin (Aspirin 81), 81 MG PO DAILY Bisacodyl (Bisacodyl), 10 MG RI DAILY Carvedilol (Coreg), 12.5 MG PO BID Collagenase (Santyl), 1 APPLN TOP DAILY Docusate Sodium (Docusate Sodium), 100 MG PO BID Ertapenem Sodium (Invanz), 1 GM IV Q24H Escitalopram Oxalate (Escitalopram Oxalate), 10 MG PO QAM Famotidine (Pepcid), 20 MG PO BID Fluticasone Furoate-Vilanterol (Breo Ellipta), 1 PUFF INH DAILY Glucagon (Glucagon Emergency Kit), 1 MG SC UD Hydrochlorothiazide (Hctz), 25 MG PO DAILY Insulin Aspart (Novolog Flexpen), 0 UNITS SC ACHS Insulin Glargine (Lantus), 15 UNITS SC QAM Lactobacillus Acidophilus (Floranex), 4 TAB PO TIDM Losartan Potassium (Cozaar), 100 MG PO DAILY Magnesium Hydroxide (Milk of Magnesia), 30 ML PO DAILY PRN for Montelukast Sodium (Singulair), 10 MG PO DAILY Multiple Vitamins W/ Minerals (Multi Vitamin and Mineral), 1 TAB PO DAILY Polyethylene Glycol 3350 (Miralax), 17 GM PO DAILY PRN for Potassium Chloride (Potassium Chloride ER), 20 MEQ PO DAILY Pravastatin Sod (Pravastatin Sodium), 40 MG PO HS Sennosides-Docusate Sodium (Docusate Sodium/Senna), 1 TAB PO QDL Sodium Phosphates (Enema), 133 ML RI DAILY PRN for Vancomycin HCl (Vancomycin HCl), 125 MG PO QID [Glucose Oral Gel], Unknown Dose Review of Systems Constitutional: No fever, No chills, No sweats, No weight loss, No weakness, No fatigue, No problem reported Eyes: No worsening of vision, No eye pain, No redness, No diplopia, No problem reported ENT: + nasal symptoms (congestion), No hearing loss, No unusual epistaxis, No sore throat, No tinnitus, No trouble swallowing Respiratory: + shortness of breath (chronic), + dyspnea on exertion, No cough, No sputum, No wheezing, No dyspnea at rest, No hemoptysis Cardiovascular: No chest pain, No orthopnea, No edema, No claudication, No palpitations, No problem reported Abdomen: + diarrhea, + GI bleeding, No pain, No nausea, No vomiting, No constipation Musculoskeletal: No joint pain, No muscle pain, No swelling, No calf pain, No problem reported Genitourinary - Female: No dysuria, No urinary frequency, No urinary urgency, No urinary incontinence, No urinary retention, No hematuria, No problem reported Neurologic: No memory loss, No paralysis, No weakness, No numbness/tingling, No vertigo, No problem reported Psychiatric: No depression symptoms, No anxiety, No problem reported Hematologic / Lymphatic: No abnormal bleeding/bruising, No night sweats, No problem reported Integumentary: No rash, No itch, No color change, No bleeding, No problem reported Allergic / Immunologic: No poor healing, No problem reported Physical Exam Vital Signs (24 Hours) Date Time Temp Pulse Resp B/P (MAP) Pulse Ox O2 Delivery O2 Flow Rate FiO2 07/14/17 16:20 37.1 72 22 130/62 (84) 100 Room Air 07/14/17 15:55 36.9 68 18 144/74 96 Nasal Cannula 2.0 07/14/17 15:53 36.9 68 18 144/74 (97) 96 Nasal Cannula 2.0 07/14/17 12:00 Nasal Cannula 2.0 07/14/17 10:43 36.9 76 20 169/76 (107) 96 Nasal Cannula 2.0 07/14/17 08:00 Nasal Cannula 2.0 07/14/17 07:13 37.2 70 18 166/78 (107) 96 Nasal Cannula 2.0 07/14/17 06:30 37.1 65 16 144/77 97 2.0 07/14/17 06:23 37.1 65 15 122/85 97 2.0 07/14/17 05:23 37.1 74 17 151/82 97 2.0 07/14/17 04:53 36.7 74 16 156/82 96 2.0 07/14/17 04:38 36.7 71 20 147/80 97 2.0 07/14/17 04:00 96 Room Air 2.0 07/14/17 02:40 36.7 75 17 160/80 96 2.0 07/14/17 01:40 36.8 72 18 160/83 98 2.0 07/14/17 01:10 36.8 74 20 159/83 98 2.0 07/14/17 00:55 36.7 76 20 155/85 98 2.0 07/13/17 23:34 36.8 83 20 184/83 96 Nasal Cannula 2.0 07/13/17 23:24 76 18 141/75 99 07/13/17 22:37 89 17 140/68 100 Room Air 07/13/17 20:31 87 07/13/17 20:17 37.4 99 18 154/59 100 Nasal Cannula 2.0 General Appearance: WD/WN, no apparent distress Head: normocephalic, atraumatic ENT: hearing grossly normal Neck: supple, no JVD, trachea midline Respiratory/Chest: chest non-tender, no respiratory distress, no accessory muscle use, + wheezing Cardiovascular: regular rate, rhythm, no edema, no gallop, no JVD, no murmur, normal peripheral pulses (lower extremity pulses barely palpable) Abdomen/GI: normal bowel sounds, non tender, soft, no organomegaly, no pulsatile mass Extremities/Musculoskelatal: no calf tenderness, normal capillary refill ( normal skin turgor), no pedal edema, non-tender Neurologic/Psych: alert, normal mood/affect Skin: normal color, warm/dry Diagnostics Laboratory Results Results Past 24 Hours Test 07/13/17 20:22 07/13/17 20:23 07/14/17 00:07/14/17 03:53 Range/Units White Blood Count 12.36 4.8-10.8 K/uL Red Blood Count 2.87 4.2-5.4 M/uL Hemoglobin 8.2 8.6 12.0-16.0 g/dL Hematocrit 25.4 37-47 % Mean Corpuscular Volume 88.5 80-100 fL Mean Corpuscular Hemoglobin 28.6 25-34 pg Mean Corpuscular Hemoglobin Concent 32.3 32-36 g/dl Platelet Count 263 130-400 K/uL Mean Platelet Volume 8.8 7.4-10.4 fL Neutrophils (%) (Auto) 69.5 % Lymphocytes (%) (Auto) 18.9 % Monocytes (%) (Auto) 8.2 % Eosinophils (%) (Auto) 1.8 % Basophils (%) (Auto) 0.2 % Neutrophils # (Auto) 8.59 1.4-6.5 K/uL Lymphocytes # (Auto) 2.34 1.2-3.4 K/uL Monocytes # (Auto) 1.01 0.11-0.59 K/uL Eosinophils # (Auto) 0.22 0-0.5 K/uL Basophils # (Auto) 0.03 0-0.2 K/uL RDW Standard Deviation 43.9 36.4-46.3 fL RDW Coefficient of Variation 13.5 11.5-14.5 % Immature Granulocyte % (Auto) 1.4 % Immature Granulocyte # (Auto) 0.17 0.00-0.02 K/uL Polychromasia 1+ Prothrombin Time 12.1 9.0-12.0 SECONDS Prothromb Time International Ratio 1.1 0.9-1.1 Sodium Level 139 139 136-145 mmol/L Potassium Level 4.2 4.3 3.5-5.1 mmol/L Chloride Level 100 100 98-107 mmol/L Carbon Dioxide Level 33 34 21-32 mmol/L Anion Gap 6.0 5.0 3-11 mmol/L Blood Urea Nitrogen 31 32 7-18 mg/dl Creatinine 1.47 1.51 0.60-1.20 mg/dl Est Creatinine Clear Calc Drug Dose 39.7 37.9 ml/min Estimated GFR () 42.1 40.7 Estimated GFR (Non- 36.3 35.1 BUN/Creatinine Ratio 21.0 21.0 10-20 Random Glucose 229 223 70-99 mg/dl Calcium Level 7.9 7.7 8.5-10.1 mg/dl Total Bilirubin 0.2 0.2-1 mg/dl Aspartate Amino Transf (AST/SGOT) 19 15-37 U/L Alanine Aminotransferase (ALT/SGPT) 24 12-78 U/L Alkaline Phosphatase 92 45-117 U/L Total Protein 6.1 6.4-8.2 gm/dl Albumin 2.3 3.4-5.0 gm/dl Globulin 3.8 2.5-4.0 gm/dl Albumin/Globulin Ratio 0.6 0.9-2 Lipase 113 73-393 U/L Bedside Lactic Acid Venous 1.38 0.90-1.70 mmol/L Bedside Glucose 244 70-90 mg/dl Magnesium Level 1.3 1.8-2.4 mg/dl Test 07/14/17 05:20 07/14/17 07:42 07/14/17 11:42 07/14/17 11:43 Range/Units Bedside Glucose 212 262 252 70-90 mg/dl Hemoglobin 9.4 12.0-16.0 g/dL Test 07/14/17 11:51 Range/Units Hemoglobin 9.0 12.0-16.0 g/dL Diagnostic Radiology ABD/PELVIS NO IV OR ORAL CONT CT DOSE: 1546.84 mGy.cm HISTORY: Bowel change gi bleed, recent c.diff, diarrhea TECHNIQUE: Multiaxial CT images of the abdomen and pelvis were performed without contrast. A dose lowering technique was utilized adhering to the principles of ALARA. COMPARISON STUDY: 07/06/2017 FINDINGS: Lung bases are clear. Liver spleen and pancreas are unremarkable. There is extensive calcification of the upper abdominal arterial vasculature. There are stable postoperative changes of the lumbar spine. There is no evidence renal hydronephrosis. There is fluid within the small bowel as well as colon. No evidence for bowel obstruction. Scattered colonic diverticuli with no evidence diverticulitis. Artifact obscuring detail within the low pelvis from bilateral total hip arthroplasties. IMPRESSION: 1. Fluid within the colon and to lesser extent small bowel suggesting a nonspecific enteritis and possibly colitis. 2. No evidence for obstructive change. 3. No evidence for abscess or collection. The above report was generated using voice recognition software. It may contain grammatical, syntax or spelling errors. Electronically signed by: Freddy Rodriguez M.D. 07/14/2017 6:42 AM Impression Assessment and Plan Janeth is a 67yo female with past medical history of DM2, COPD, HTN, CAD s/p 1 stent, hyperlipidemia, GERD, CKD3, recent ESBL bacteremia discharge and current treatment and recent C. diff infection and treatment who presents to the ED for blood in her stool in the setting of 1 week of diarrhea from toxin positive C. diff infection. She was recently hospitalized for a UTI and blood culture grew ESBL bacteria, and she has been treated with ertapenem IV and end of treatment will be on 22Jul2017. She was also found to have C. diff colitis and was started on oral Vancomycin during hospitalization and will finish on 22Jul2017. Bloody bowel movements: Description of bowel movements is variable. It sounds as though there may be Upper and Lower GI bleeding sources. Seems somewhat abnormal to be on treatment for C. diff for 6 days and then develop bloody stools, so other etiologies should be explored. Given that it is painless, less likely to be IBD, Mesenteric ischemia, peptic ulcer disease, or external hemorrhoids. Given the normal colonoscopy in regards to cancer findings recently, less likely to be cancerous. Recent finding of diverticula is concerning for diverticular bleeding though. Given that she has been treated for E. coli, shiga toxin E. coli is less likely, although this could be a factor in her anemia. Angiodysplasia is a less common, but possible cause, but I would think some abnormality would have been seen on colonoscopy. Aspirin alone is less likely to cause iatrogenic GI bleeding. GI is following, she is scheduled for an EGD today. May consider colonoscopy tomorrow. No signs of hypovolemia. Hgb of 9.4 following 2 units pRBCs. Plan: Continue Vancomycin 125mg PO QID, Continue ertapenem 1gm IV daily, maintain IV hydration. Monitor for signs of hypovolemia with tachycardia being early sign. Repeat CBC tomorrow morning. Start probiotic Florastor 250mg PO BID. HOLD Aspirin and HCTZ due to concern for bleeding and dehydration, respectively. ESRB: Receiving ertapenem IV. No UTI symptoms. Afebrile, normotensive (episodes of hypertension), non-tachycardic since 1999 on 08Nov, non tachypneic. WBC of 12.36. Plan: Continue ertapenem IV. Anemia: Likely secondary to GI bleeding. Initially 8.2 Hgb, 9.4 after transfusing 2 units pRBC, now 9.0. Asymptomatic. MCV normal and RDW normal. Plan: Repeat CBC in AM. Transfuse if 8 or less if still bleeding in stool, <7 if not bleeding. COPD: Subjective shortness of breath, feels she is at baseline. O2 sats in mid to high 90's. Ordered Advair 250/50 1 puff BID and Albuterol 2 puff q6h PRN. Plan: Continue Advair and Albuterol therapy. Diabetes, type 2: Low to high 200's. Asymptomatic. Last A1c in 06Jul2017 was 8.4. On sliding scale. Plan: Continue sliding scale insulin. May need to adjust if continues to be high tomorrow. HTN: Normotensive majority of day. Asymptomatic. Plan: Continue carvedilol 12.5mg PO BID and losartan 100 mg PO daily Asthma: Asymptomatic. Manage outpatient. Plan: Montelukast 10mg PO daily. Depression: Asymptomatic. Manage outpatient. Plan: Assess for symptoms. Continue escitalopram 10mg PO qAM. Hyperlipidemia: Asymptomatic. Manage outpatient. Plan: Continue pravastatin 40mg PO HS GERD: Concerned for upper GI bleed, currently has C. diff infection and being treated, so PPI use shouldn't worsen C. diff, and would be protective against possible ulcers. Plan: pantoprazole 40mg IV BID and famotidine 20mg PO BID. CKD: BUN/Cr = 32/1.51, output >0.5 mL/kg/hr. No pain with urination. Currently NPO. Plan: IVF normal saline at 100mL/hr Hypomagnesemia: 1.3 today, given 1gm Magnesium. Asymptomatic. Plan: recheck BMP tomorrow Level of Care Telemetry Advanced Directives Existing Living Will: No Existing Power of Editor Book: No DVT Prophylaxis SCDs Prophylaxis Contraindication: Medical contraindication (GI Bleed)
--- NOTE | 2017-07-14 17:35 | Anesthesiology Progress Note ---
Anesthesia Post Op Note Date & Time Jul 14, 2017 at 17:35 Vital Signs Pain Intensity: 0.0 Vital Signs Past 12 Hours Date Time Temp Pulse Resp B/P (MAP) Pulse Ox O2 Delivery O2 Flow Rate FiO2 07/14/17 17:24 70 16 134/61 (85) 97 Room Air 07/14/17 17:09 73 16 126/50 (75) 100 Room Air 07/14/17 16:20 37.1 72 22 130/62 (84) 100 Room Air 07/14/17 16:00 Nasal Cannula 2.0 07/14/17 15:55 36.9 68 18 144/74 96 Nasal Cannula 2.0 07/14/17 15:53 36.9 68 18 144/74 (97) 96 Nasal Cannula 2.0 07/14/17 12:00 Nasal Cannula 2.0 07/14/17 10:43 36.9 76 20 169/76 (107) 96 Nasal Cannula 2.0 07/14/17 08:00 Nasal Cannula 2.0 07/14/17 07:13 37.2 70 18 166/78 (107) 96 Nasal Cannula 2.0 07/14/17 06:30 37.1 65 16 144/77 97 2.0 07/14/17 06:23 37.1 65 15 122/85 97 2.0 Notes Mental Status: alert / awake / arousable, participated in evaluation Pt Amnestic to Procedure: Yes Nausea / Vomiting: adequately controlled Pain: adequately controlled Airway Patency, RR, SpO2: stable & adequate BP & HR: stable & adequate Hydration State: stable & adequate Anesthetic Complications: no major complications apparent
[2017-07-14] MEDS ORDERED: NURSING VERBAL MED ORDER ONE (18:15)
[2017-07-14] MEDS: FLUTICASONE/SALMETEROL 250/50 (ADVAIR) 14 PUFF/1 INHALER INH SCH (19:43)
[2017-07-14] MEDS: SUCRALFATE 1 GM TAB PO SCH (19:43)
[2017-07-14] MEDS: PRAVASTATIN SOD 40 MG TAB PO SCH (19:52)
[2017-07-14] MEDS: PANTOprazole INJ 40 MG in SYRINGE 0 ML IV SCH (19:52)
[2017-07-14] MEDS ORDERED: SACCHAROMYCES BOUL (FLORASTOR) 250 MG CAP PO SCH (21:00)
[2017-07-14] MEDS: INSULIN GLARGINE SOLOSTAR 100 UNITS/ML 3 ML PEN SC SCH (21:32)
[2017-07-15 00:35] VITALS: BP 137/72; PULSE 65; TEMP 36.6; O2SAT 98
[2017-07-15 04:38] VITALS: BP 177/82; PULSE 69; TEMP 36.9; O2SAT 96
--- NOTE | 2017-07-15 07:09 | Hospitalist Progress Note ---
Hospitalist Progress Note Date of Service Jul 14, 2017. Subjective Pt evaluation today including: conversation w/ patient Patient continues to have some maroon blood mixed in with her stool and has had 3 or 4 bowel movements so far today. Plans on EGD later today. Does report some black stools prior to admission so unclear if upper GI bleed versus lower GI bleed. Patient reports stable shortness of breath, no chest pain Cardiovascular: No chest pain Abdomen: + diarrhea, No pain, No nausea, No vomiting All Other Systems: Reviewed and Negative Objective Vital Signs Date Time Temp Pulse Resp B/P (MAP) Pulse Ox O2 Delivery O2 Flow Rate FiO2 07/15/17 04:40 CPAP 4.0 07/15/17 04:38 36.9 69 16 177/82 (113) 96 CPAP 4.0 07/15/17 00:35 36.6 65 15 137/72 (93) 98 CPAP 4.0 07/15/17 00:00 CPAP 4.0 07/14/17 20:00 Nasal Cannula 2.0 07/14/17 19:54 36.5 79 19 148/74 (98) 94 Nasal Cannula 2.0 07/14/17 17:39 70 16 101/56 (71) 98 Room Air 07/14/17 17:24 70 16 134/61 (85) 97 Room Air 07/14/17 17:09 73 16 126/50 (75) 100 Room Air 07/14/17 16:20 37.1 72 22 130/62 (84) 100 Room Air 07/14/17 16:00 Nasal Cannula 2.0 07/14/17 15:55 36.9 68 18 144/74 96 Nasal Cannula 2.0 07/14/17 15:53 36.9 68 18 144/74 (97) 96 Nasal Cannula 2.0 07/14/17 12:00 Nasal Cannula 2.0 07/14/17 10:43 36.9 76 20 169/76 (107) 96 Nasal Cannula 2.0 07/14/17 08:00 Nasal Cannula 2.0 07/14/17 07:13 37.2 70 18 166/78 (107) 96 Nasal Cannula 2.0 Physical Exam General Appearance: WD/WN, no apparent distress, + obese Eyes: normal inspection, sclerae normal ENT: hearing grossly normal, pharynx normal Neck: trachea midline Respiratory/Chest: no respiratory distress, no accessory muscle use, + decreased breath sounds (throughout secondary to body habitus) Cardiovascular: regular rate, rhythm, no edema, no gallop, no murmur Abdomen: normal bowel sounds, non tender, soft (and obese) Extremities: non-tender, normal inspection, no pedal edema, no calf tenderness Neurologic/Psychiatric: alert, normal mood/affect, oriented x 3 Skin: normal color, warm/dry, no rash Laboratory Results Last 24 Hours Test 07/14/17 07:42 07/14/17 11:42 07/14/17 11:43 07/14/17 11:51 Hemoglobin 9.4 g/dL 9.0 g/dL Bedside Glucose 262 mg/dl 252 mg/dl Test 07/14/17 16:28 07/14/17 17:56 07/14/17 20:11 07/15/17 06:35 Bedside Glucose 214 mg/dl 204 mg/dl 313 mg/dl Assessment and Plan 67 y/o F Hx COPD, HTN, CAD, DMII, gastroparesis, CKD III, anemia, obese - recently D/Cd following admission for Urosepsis with ESBL in addition to Cdiff which emerged during hospitalization. Pt has had persistent diarrhea for over one wk and today developed hematochezia describing dark, red bowel movements. She denies abdominal pain, N/V, lightheadedness, palpitations or fevers. The pt has a port owing to long-term treatment for ESBL with Ertapenem. She is taking oral Vancomycin for C-diff. It is noted that in May 22 the pt was life-flighted to [place] due to critical PNM and had spent 2 weeks in rehab when she was transferred back to the hospital due to the above UTI. GI bleed and acute blood loss anemia - this is painless bleeding, no abdominal pain. Hb had decreased 2 grams from previous admission, was transfused 2 units PRBCs on admission- source of bleed, upper vs lower not clear as stool is dark red and sometimes described as black.. CT abdomen/pelvis unrevealing. Does have C. difficile colitis which could be the source for bleeding, versus diverticular bleeding, versus upper GI. Hemoglobin remains stable since transfusion around 9.0 -Given potential for great blood loss, remain on telemetry -Continue PPI drip -Appreciate GI consultation-plan for EGD today -Colonoscopy could be done but is not ideal in the setting of C. difficile colitis C diff colitis- she will remain on by mouth Vanc through 07/22 as originally planned ESBL UTI and previous ESBL Escherichia coli bacteremia - cont Ertapenem through 07/22 through her PICC line COPD - no evidence of acute exacerbation - denies SOB above baseline - cont prescribed inhalers and an 02 protocol CKD stage III - creat is approximately at baseline -Follow PRP Avoid nephrotoxins -Renally dose all medications CAD/HTN - no evidence of ACS - ASA is held in the setting of bleeding. Blood pressures are actually a little hypertensive, hydrochlorothiazide is being held due to hypovolemia -Continue losartan, statin, Coreg -Continue to hold aspirin -Continue telemetry DONG - CPAP provided HS DM II with gastroparesis - now with hyperglycemia. Hemoglobin A1c elevated at 8.4%, uncontrolled -Started Lantus 15 units once daily -Accu-Cheks and sliding scale insulin -Will need improved control upon discharge and follow up with PCP Prophylaxis-SCDs only due to GI bleeding, PPI drip and H2 krishan twice a day Disposition-likely back to rehabilitation when stable Full code
[2017-07-15 07:43] LABS: BASO % 0.3 %; BASO ABS # 0.03 K/uL (0-0.2); EOS % 2.9 %; HEMATOCRIT 25.4 % (37-47); IG% 1.2 %; LYMPH % 24.7 %; LYMPH ABS # 2.19 K/uL (1.2-3.4); MEAN CELL VOLUME 89.4 fL (80-100); MEAN CORPUSCULAR HEMOGLOBIN 28.5 pg (25-34); MEAN CORPUSCULAR HGB CONC 31.9 g/dl (32-36); MEAN PLATELET VOLUME 8.8 fL (7.4-10.4); MONO % 8.6 %; NEUT % 62.3 %; PLATELET COUNT 217 K/uL (130-400); RED BLOOD COUNT 2.84 M/uL (4.2-5.4); WHITE BLOOD COUNT 8.86 K/uL (4.8-10.8)
[2017-07-15 07:57] VITALS: BP 179/74; PULSE 73; TEMP 36.6; O2SAT 98
[2017-07-15 08:17] LABS: COMPLETE YES
[2017-07-15 08:19] LABS: BUN/CREATININE RATIO 22.8 (10-20); CALCIUM 8.3 mg/dl (8.5-10.1); CREATININE 1.58 mg/dl (0.60-1.20); POTASSIUM 4.6 mmol/L (3.5-5.1)
[2017-07-15] MEDS: PANTOprazole INJ 40 MG in SYRINGE 0 ML IV SCH (08:26)
[2017-07-15] MEDS: ESCITALOPRAM OXALATE 10 MG TAB PO SCH (08:26)
[2017-07-15] MEDS: LOSARTAN POTASSIUM 50 MG TAB PO SCH (08:26)
[2017-07-15] MEDS: CARVEDILOL 12.5 MG TAB PO SCH ×2 (08:27→20:50)
[2017-07-15] MEDS: FAMOTIDINE 20 MG TAB PO SCH ×2 (08:27→20:50)
[2017-07-15] MEDS: MONTELUKAST SOD 10 MG TAB PO SCH (08:27)
[2017-07-15] MEDS: FLUTICASONE/SALMETEROL 250/50 (ADVAIR) 14 PUFF/1 INHALER INH SCH ×2 (08:28→20:50)
[2017-07-15] MEDS: SUCRALFATE 1 GM TAB PO SCH ×4 (08:28→20:50)
[2017-07-15] MEDS: RASPBERRY SYRUP 5 ML UDP PO SCH ×4 (08:28→20:50)
[2017-07-15] MEDS: COLLAGENASE OINT 30 GM TUBE EXT SCH (08:29)
[2017-07-15] MEDS: BISACODYL 10 MG SUPP PR SCH (08:29)
--- NOTE | 2017-07-15 08:42 | Clinical Documentation Query ---
CLINICAL DOCUMENTATION QUERY Dr. RUDD, In your clinical opinion is this patient being managed for: (x ) Chronic respiratory failure ( ) Not Agree ( ) Other explanation of clinical findings (Please Explain) ( ) Unable to determine (Please Define) ( ) Need to Discuss The medical record reflects the following clinical findings, treatment, and risk factors. Clinical Indicators: 67 yo female noted to use continuous home O2. Treatment: continuous home O2, ventolin inhaler, breo ellipta, Risk Factors: COPD Please clarify and document your clinical opinion in the progress notes and discharge summary. Terms such as "probable", "suspected", "likely", "questionable", "possible", or "still to be ruled out" are acceptable. IF IN AGREEMENT, YOU MUST DOCUMENT ABOVE DIAGNOSTIC STATEMENT IN DAILY PROGRESS NOTES AND DISCHARGE SUMMARY. This document is not part of the patient's record. Thank You, Mikki Casarez RN [phone]
[2017-07-15] MEDS: INSULIN ASPART 100 UNITS/ML 3 ML PEN SC SCH ×4 (08:49→20:52)
[2017-07-15] MEDS: VANCOMYCIN HCL 125 MG/2.5ML SOLN PO SCH ×4 (08:50→20:50)
[2017-07-15] MEDS ORDERED: INSULIN GLARGINE SOLOSTAR 100 UNITS/ML 3 ML PEN SC SCH (09:00)
--- NOTE | 2017-07-15 09:25 | Gastroenterology Progress Note ---
Progress Note Date of Service: Jul 15, 2017 Subjective Pt evaluation today including: conversation w/ patient, physical exam, lab review, review of studies Patient is a 67 yo female hospitalized with multiple medical issues. GI is following for lower GI bleeding & C diff. The patient underwent an EGD on 07/14 for further evaluation of her reports of dark stools. EGD indicated many cratered gastric ulcers. The patient reports she is feeling somewhat better since yesterday. She reports her stools have not been as dark. She reports 3 episodes of loose stool with urgency since yesterday afternoon. She denies abdominal pain, nausea, or vomiting at present. She denies further concerns at present. Her H/H is 8.1/25.4 this AM. Review of Systems Constitutional: No fever, No chills Respiratory: No cough, No shortness of breath Cardiac: No chest pain Abdomen: + diarrhea, No pain, No nausea, No vomiting, No constipation, No GI bleeding Musculoskeletal: No joint pain Psych: No problem reported Skin: No problem reported Medications Current Inpatient Medications Medications (Trade) Dose Ordered Sig/Javon Route Start Time Stop Time Status Last Admin Dose Admin Albuterol (Ventolin Hfa Inhaler) 2 puffs Q6H PRN INH 07/13/17 22:30 08/12/17 22:29 Bisacodyl (Dulcolax Supp) 10 mg DAILY [place] 07/14/17 09:00 08/13/17 08:59 Carvedilol (Coreg Tab) 12.5 mg BID PO 07/14/17 09:00 08/13/17 08:59 07/15/17 08:27 12.5 MG Collagenase (Santyl Oint) 1 appln DAILY EXT 07/14/17 09:00 08/13/17 08:59 07/15/17 08:29 1 APPLN Escitalopram Oxalate (Lexapro Tab) 10 mg QAM PO 07/14/17 09:00 08/13/17 08:59 07/15/17 08:26 10 MG Famotidine (Pepcid Tab) 20 mg BID PO 07/14/17 09:00 08/13/17 08:59 07/15/17 08:27 20 MG Losartan Potassium (coZAAR TAB) 100 mg DAILY PO 07/14/17 09:00 08/13/17 08:59 07/15/17 08:26 100 MG Montelukast Sodium (Singulair Tab) 10 mg DAILY PO 07/14/17 09:00 08/13/17 08:59 07/15/17 08:27 10 MG Pravastatin Sodium (Pravachol Tab) 40 mg HS PO 07/14/17 21:00 08/13/17 20:59 07/14/17 19:52 40 MG Acetaminophen (Tylenol Tab) 650 mg Q4H PRN PO 07/13/17 23:00 08/12/17 22:59 Al Hydrox/Mg Hydrox/Simethicone (Maalox Max Susp) 15 ml Q4H PRN PO 07/13/17 23:00 08/12/17 22:59 Magnesium Hydroxide (Milk Of Magnesia Susp) 30 ml Q12H PRN PO 07/13/17 23:00 08/12/17 22:59 Zolpidem Tartrate (Ambien Tab) 5 mg HSZ PRN PO 07/13/17 23:00 08/12/17 22:59 Ondansetron HCl (Zofran Inj) 4 mg Q6H PRN IV 07/13/17 23:00 08/12/17 22:59 Raspberry (Raspberry Syrup 5ml Cup) 5 ml QID PO 07/14/17 09:00 07/24/17 08:59 07/15/17 08:28 5 ML Ertapenem 1 gm/ Sodium Chloride 50 ml @ 100 mls/hr Q24H IV 07/14/17 10:00 07/24/17 09:59 07/14/17 12:00 100 MLS/HR Vancomycin HCl (Vancomycin Oral Soln) 125 mg QID PO 07/14/17 09:00 07/24/17 08:59 07/15/17 08:50 125 MG Heparin Sodium (Porcine) (Heparin 10 Unit/ ml 5 ml Flush) 5 ml PRN PRN FLUSH 07/14/17 11:45 08/13/17 11:44 Pantoprazole Sodium 40 mg/ Syringe 10 ml @ 5 mls/min DAILY@ IV 07/14/17 21:00 08/13/17 20:59 07/15/17 08:26 5 MLS/MIN Insulin Glargine (Lantus Solostar Pen) 15 units QPM SC 07/14/17:00 08/13/17 20:59 07/14/17 21:32 15 UNITS Salmeterol Xinafoate/ Fluticasone (Advair Diskus 250/50 Inh) 1 puff BID INH 07/14/17 21:00 08/13/17 20:59 07/15/17 08:28 1 PUFF Sucralfate (Carafate Tab) 1 gm QID PO 07/14/17 21:00 07/24/17 20:59 07/15/17 08:28 1 GM Insulin Aspart (novoLOG ASPART) SLIDING SCALE G... ACHS MO 07/14/17 21:00 08/13/17 20:59 07/15/17 08:49 2 UNITS Insulin Glargine (Lantus Solostar Pen) 5 units QAM MO 07/15/17 09:00 08/14/17 08:59 Objective Vital Signs Date Time Temp Pulse Resp B/P (MAP) Pulse Ox O2 Delivery O2 Flow Rate FiO2 07/15/17 07:57 36.6 73 22 179/74 (109) 98 Nasal Cannula 2.0 07/15/17 04:40 CPAP 4.0 07/15/17 04:38 36.9 69 16 177/82 (113) 96 CPAP 4.0 07/15/17 00:35 36.6 65 15 137/72 (93) 98 CPAP 4.0 07/15/17 00:00 CPAP 4.0 07/14/17 20:00 Nasal Cannula 2.0 07/14/17 19:54 36.5 79 19 148/74 (98) 94 Nasal Cannula 2.0 07/14/17 17:39 70 16 101/56 (71) 98 Room Air 07/14/17 17:24 70 16 134/61 (85) 97 Room Air 07/14/17 17:09 73 16 126/50 (75) 100 Room Air 07/14/17 16:20 37.1 72 22 130/62 (84) 100 Room Air 07/14/17 16:00 Nasal Cannula 2.0 07/14/17 15:55 36.9 68 18 144/74 96 Nasal Cannula 2.0 07/14/17 15:53 36.9 68 18 144/74 (97) 96 Nasal Cannula 2.0 07/14/17 12:00 Nasal Cannula 2.0 07/14/17 10:43 36.9 76 20 169/76 (107) 96 Nasal Cannula 2.0 Physical Exam General Appearance: WD/WN, no apparent distress Eyes: normal inspection, PERRL Respiratory/Chest: lungs clear Cardiovascular: regular rate, rhythm Abdomen: normal bowel sounds, non tender, soft Extremities: non-tender Neurologic/Psych: alert, oriented x 3 Skin: normal color Laboratory Results Last 24 Hours Test 07/14/17 11:42 07/14/17 11:43 07/14/17 11:51 07/14/17 16:28 Bedside Glucose 262 mg/dl 252 mg/dl 214 mg/dl Hemoglobin 9.0 g/dL Test 07/14/17 17:56 07/14/17 20:11 07/15/17 07:02 07/15/17 07:23 Bedside Glucose 204 mg/dl 313 mg/dl 230 mg/dl White Blood Count 8.86 K/uL Red Blood Count 2.84 M/uL Hemoglobin 8.1 g/dL Hematocrit 25.4 % Mean Corpuscular Volume 89.4 fL Mean Corpuscular Hemoglobin 28.5 pg Mean Corpuscular Hemoglobin Concent 31.9 g/dl Platelet Count 217 K/uL Mean Platelet Volume 8.8 fL Neutrophils (%) (Auto) 62.3 % Lymphocytes (%) (Auto) 24.7 % Monocytes (%) (Auto) 8.6 % Eosinophils (%) (Auto) 2.9 % Basophils (%) (Auto) 0.3 % Neutrophils # (Auto) 5.51 K/uL Lymphocytes # (Auto) 2.19 K/uL Monocytes # (Auto) 0.76 K/uL Eosinophils # (Auto) 0.26 K/uL Basophils # (Auto) 0.03 K/uL RDW Standard Deviation 47.2 fL RDW Coefficient of Variation 14.4 % Immature Granulocyte % (Auto) 1.2 % Immature Granulocyte # (Auto) 0.11 K/uL Red Blood Cell Morphology Unremarkable Sodium Level 141 mmol/L Potassium Level 4.6 mmol/L Chloride Level 104 mmol/L Carbon Dioxide Level 31 mmol/L Anion Gap 6.0 mmol/L Blood Urea Nitrogen 36 mg/dl Creatinine 1.58 mg/dl Est Creatinine Clear Calc Drug Dose 36.2 ml/min Estimated GFR () 38.6 Estimated GFR (Non- 33.3 BUN/Creatinine Ratio 22.8 Random Glucose 232 mg/dl Calcium Level 8.3 mg/dl Magnesium Level 2.0 mg/dl Assessment and Plan Patient is a 67 yo female hospitalized with a worsening UTI and acute on chronic anemia. GI has been following for lower GI bleeding & C diff. 1) Continue Protonix 40 mg BID indefinitely. 2) Carafate 1 gm four times daily prior to meals and at bedtime. 3) Continue Vancomycin 125 mg po four times daily through 07/22. 4) Daily probiotic use. Treating C diff likely to be a challenge given need for continued antibiotics for UTI. 5) No plans for colonoscopy at the present time. 6) Supportive care per primary team. Thank you for allowing us to participate in the care of this patient. If you should have any further questions or concerns, do not hesitate to contact us. Agree with DUNCAN Isaac as above Abd: Soft, NT, ND, +BS Still having some black stools, though less than previous Continue current therapy [facility] will be covering over the weekend.
[2017-07-15] MEDS: ERTAPENEM IV 1 GM in SODIUM CHLOR 0.9% AD-VAN 50ML IV SCH (10:38)
[2017-07-15 12:15] VITALS: Ht 152.4 cm; Wt 103.6 kg
[2017-07-15 13:19] VITALS: BP 152/76; PULSE 82; TEMP 36.8; O2SAT 95
--- NOTE | 2017-07-15 15:50 | Medical Student: [facility] ---
Med Student Progress Note Date of Service Jul 15, 2017. Subjective Pt evaluation today including: conversation w/ patient, physical exam, chart review, lab review, review of studies Janeth feels ok today. She continues to have liquid diarrhea with dark red stools, "esthela" colored. No pain with BM's, no fever, chills, n/v/ constipation, abdominal pain, urinary pain, chest pain, shortness of breath, passing out, lightheadedness. She says she had about 5 BM's yesterday and last night. I discussed with her the findings on the EGD performed yesterday and the plan going forward. Review of Systems Constitutional: + see HPI Objective Vital Signs Date Time Temp Pulse Resp B/P (MAP) Pulse Ox O2 Delivery O2 Flow Rate FiO2 07/15/17 13:19 36.8 82 18 152/76 (101) 95 07/15/17 12:00 Nasal Cannula 2.0 07/15/17 08:00 Nasal Cannula 2.0 07/15/17 07:57 36.6 73 22 179/74 (109) 98 Nasal Cannula 2.0 07/15/17 04:40 CPAP 4.0 07/15/17 04:38 36.9 69 16 177/82 (113) 96 CPAP 4.0 07/15/17 00:35 36.6 65 15 137/72 (93) 98 CPAP 4.0 07/15/17 00:00 CPAP 4.0 07/14/17 20:00 Nasal Cannula 2.0 07/14/17 19:54 36.5 79 19 148/74 (98) 94 Nasal Cannula 2.0 07/14/17 17:39 70 16 101/56 (71) 98 Room Air 07/14/17 17:24 70 16 134/61 (85) 97 Room Air 07/14/17 17:09 73 16 126/50 (75) 100 Room Air 07/14/17 16:20 37.1 72 22 130/62 (84) 100 Room Air 07/14/17 16:00 Nasal Cannula 2.0 07/14/17 15:55 36.9 68 18 144/74 96 Nasal Cannula 2.0 07/14/17 15:53 36.9 68 18 144/74 (97) 96 Nasal Cannula 2.0 Physical Exam General Appearance: WD/WN, no apparent distress ENT: hearing grossly normal Neck: supple, trachea midline Respiratory/Chest: chest non-tender, lungs clear, normal breath sounds, no respiratory distress, no accessory muscle use Cardiovascular: regular rate, rhythm, no edema, no gallop, no JVD, no murmur Abdomen: normal bowel sounds, soft, no pulsatile mass, + tenderness (Tender to deep palpation in lower quadrants. More pain on LLQ than right side. No guarding , no rebound tenderness. ) Extremities: non-tender, no pedal edema Neurologic/Psychiatric: alert, normal mood/affect Laboratory Results Last 24 Hours Test 07/14/17 16:28 07/14/17 17:56 07/14/17 20:11 07/15/17 07:02 Bedside Glucose 214 mg/dl 204 mg/dl 313 mg/dl 230 mg/dl Test 07/15/17 07:23 07/15/17 11:32 White Blood Count 8.86 K/uL Red Blood Count 2.84 M/uL Hemoglobin 8.1 g/dL Hematocrit 25.4 % Mean Corpuscular Volume 89.4 fL Mean Corpuscular Hemoglobin 28.5 pg Mean Corpuscular Hemoglobin Concent 31.9 g/dl Platelet Count 217 K/uL Mean Platelet Volume 8.8 fL Neutrophils (%) (Auto) 62.3 % Lymphocytes (%) (Auto) 24.7 % Monocytes (%) (Auto) 8.6 % Eosinophils (%) (Auto) 2.9 % Basophils (%) (Auto) 0.3 % Neutrophils # (Auto) 5.51 K/uL Lymphocytes # (Auto) 2.19 K/uL Monocytes # (Auto) 0.76 K/uL Eosinophils # (Auto) 0.26 K/uL Basophils # (Auto) 0.03 K/uL RDW Standard Deviation 47.2 fL RDW Coefficient of Variation 14.4 % Immature Granulocyte % (Auto) 1.2 % Immature Granulocyte # (Auto) 0.11 K/uL Red Blood Cell Morphology Unremarkable Sodium Level 141 mmol/L Potassium Level 4.6 mmol/L Chloride Level 104 mmol/L Carbon Dioxide Level 31 mmol/L Anion Gap 6.0 mmol/L Blood Urea Nitrogen 36 mg/dl Creatinine 1.58 mg/dl Est Creatinine Clear Calc Drug Dose 36.2 ml/min Estimated GFR () 38.6 Estimated GFR (Non- 33.3 BUN/Creatinine Ratio 22.8 Random Glucose 232 mg/dl Calcium Level 8.3 mg/dl Magnesium Level 2.0 mg/dl Bedside Glucose 272 mg/dl Assessment and Plan Assessment and Plan: Janeth is a 67yo female with past medical history of DM2, COPD, HTN, CAD s/p 1 stent, hyperlipidemia, GERD, CKD3, recent ESBL bacteremia discharge and current treatment and recent C. diff infection and treatment who presented to the ED for blood in her stool in the setting of 1 week of diarrhea from toxin positive C. diff infection. She was recently hospitalized for a UTI and blood culture grew ESBL bacteria, and she has been treated with ertapenem IV and end of treatment will be on 22Jul2017. She was also found to have C. diff colitis and was started on oral Vancomycin during hospitalization and will finish on 22Jul2017. Bloody bowel movements: Description of bowel movements seems to be consistent as being deep and dark red and liquid. Developed lower abdominal pain to deep palpation today, per physical exam. May be old bleeding that is taking longer to pass, or active bleeding from right side colon or upper GI. Seems somewhat abnormal, but not unlikely, to be on treatment for C. diff for 6 days and then develop bloody stools, so other etiologies should be considered. Given that it is painless to patient, less likely to be IBD, Mesenteric ischemia, peptic ulcer disease, or external hemorrhoids. Given the normal colonoscopy in regards to cancer findings recently, less likely to be cancerous. Recent finding of diverticula is concerning for diverticular bleeding though. Given that she has been treated for E. coli, shiga toxin E. coli is less likely, although this could be a factor in her anemia. Angiodysplasia is a less common, but possible cause, but I would think some abnormality would have been seen on colonoscopy. Aspirin alone is less likely to cause iatrogenic GI bleeding. GI is following, EGD showed multiple, non-bleeding ulcers in the antrum of the stomach. Per the patient, these may be chronic. Not performing colonoscopy at this point in time. No signs of hypovolemia, no tachycardia overnight per telemetry. Hgb of 9.0 yesterday, 8.1 today. Plan: Continue Vancomycin 125mg PO QID, Continue ertapenem 1gm IV daily, consider IV hydration. Monitor for signs of hypovolemia with tachycardia being early sign. Repeat CBC tomorrow morning. Stop Florastor and start probiotic Floranex (Lactobacillus). HOLD Aspirin and HCTZ due to concern for bleeding and dehydration, respectively. ESRB: Receiving ertapenem IV. No UTI symptoms. Afebrile, normotensive (episodes of hypertension), non-tachycardic, non tachypneic. WBC of 8.86. Plan: Continue ertapenem IV. Anemia: Likely secondary to GI bleeding. Initially 8.2 Hgb, 9.4 after transfusing 2 units pRBC, now 8.1. Asymptomatic and bloody stools uncertain to represent active bleeding. MCV normal and RDW normal. Plan: Repeat CBC in AM. Transfuse if Hgb 7 or less. COPD: Subjective shortness of breath, feels she is at baseline. O2 sats in high 90's on RA and 2L NC. Plan: Continue Advair and Albuterol therapy. Diabetes, type 2: 200-300 range. Asymptomatic. Last A1c in 06Jul2017 was 8.4. On sliding scale. Plan: Adjusted sliding scale. May need to adjust further if continues to be high tomorrow. HTN: Normotensive majority of day (2 episodes of 160's systolic). Asymptomatic. Plan: Continue carvedilol 12.5mg PO BID and losartan 100 mg PO daily Asthma: Asymptomatic. Manage outpatient. Plan: Montelukast 10mg PO daily. Depression: Asymptomatic. Manage outpatient. Plan: Assess for symptoms. Continue escitalopram 10mg PO qAM. Hyperlipidemia: Asymptomatic. Manage outpatient. Plan: Continue pravastatin 40mg PO HS GERD: Concerned for upper GI bleed, currently has C. diff infection and being treated, so PPI use shouldn't worsen C. diff, and would be protective against possible ulcers. Plan: pantoprazole 40mg IV BID and famotidine 20mg PO BID. CKD: BUN/Cr = 32/1.51, output >0.5 mL/kg/hr. No pain with urination. Currently NPO. Plan: Consider IV normal saline at 100mL/hr Hypomagnesemia: 2.0 today, Magnesium last given 09Nov. Asymptomatic. Plan: recheck BMP tomorrow Continued [facility] stay due to: other (anemia, bloody stools)
[2017-07-15 16:00] VITALS: BP 138/92; PULSE 67; TEMP 36.8; O2SAT 99
[2017-07-15] MEDS: LACTOBACILLUS ACIDOPHILUS (FLORANEX) TAB PO SCH (17:23)
[2017-07-15 18:43] VITALS: BP 135/80; PULSE 73; TEMP 37; O2SAT 99
[2017-07-15] MEDS: PANTOprazole SOD 40 MG TAB PO SCH (20:50)
[2017-07-15] MEDS: PRAVASTATIN SOD 40 MG TAB PO SCH (20:50)
[2017-07-15] MEDS: INSULIN GLARGINE SOLOSTAR 100 UNITS/ML 3 ML PEN SC SCH (20:52)
--- NOTE | 2017-07-15 23:09 | Hospitalist Progress Note ---
Hospitalist Progress Note Date of Service Jul 15, 2017. Subjective Pt evaluation today including: conversation w/ patient Pt had 2-3 BMs today with esthela colored stool. Has some lower quadrant abd pain only with palpation but otherwise feels ok. No CP or SOB. Hgb dropped another gram today All Other Systems: Reviewed and Negative Objective Vital Signs Date Time Temp Pulse Resp B/P (MAP) Pulse Ox O2 Delivery O2 Flow Rate FiO2 07/15/17 18:43 37.0 73 20 135/80 (98) 99 Nasal Cannula 2.0 07/15/17 16:00 36.8 67 20 138/92 (107) 99 Nasal Cannula 2.0 07/15/17 16:00 Nasal Cannula 2.0 07/15/17 13:19 36.8 82 18 152/76 (101) 95 07/15/17 12:00 Nasal Cannula 2.0 07/15/17 08:00 Nasal Cannula 2.0 07/15/17 07:57 36.6 73 22 179/74 (109) 98 Nasal Cannula 2.0 07/15/17 04:40 CPAP 4.0 07/15/17 04:38 36.9 69 16 177/82 (113) 96 CPAP 4.0 07/15/17 00:35 36.6 65 15 137/72 (93) 98 CPAP 4.0 07/15/17 00:00 CPAP 4.0 Physical Exam General Appearance: WD/WN, no apparent distress, + obese Eyes: normal inspection, sclerae normal ENT: hearing grossly normal Neck: trachea midline Respiratory/Chest: no respiratory distress, no accessory muscle use, + decreased breath sounds (throughout due to body habitus) Cardiovascular: regular rate, rhythm, no edema, no gallop, no murmur Abdomen: normal bowel sounds, soft, + tenderness (to deep palpation in LLQ>RLQ without guarding or rebound) Extremities: non-tender, normal inspection, no pedal edema, no calf tenderness Neurologic/Psychiatric: alert, normal mood/affect, oriented x 3 Skin: normal color, warm/dry, no rash Laboratory Results Last 24 Hours Test 07/15/17 07:02 07/15/17 07:23 07/15/17 11:32 07/15/17 16:06 Bedside Glucose 230 mg/dl 272 mg/dl 272 mg/dl White Blood Count 8.86 K/uL Red Blood Count 2.84 M/uL Hemoglobin 8.1 g/dL Hematocrit 25.4 % Mean Corpuscular Volume 89.4 fL Mean Corpuscular Hemoglobin 28.5 pg Mean Corpuscular Hemoglobin Concent 31.9 g/dl Platelet Count 217 K/uL Mean Platelet Volume 8.8 fL Neutrophils (%) (Auto) 62.3 % Lymphocytes (%) (Auto) 24.7 % Monocytes (%) (Auto) 8.6 % Eosinophils (%) (Auto) 2.9 % Basophils (%) (Auto) 0.3 % Neutrophils # (Auto) 5.51 K/uL Lymphocytes # (Auto) 2.19 K/uL Monocytes # (Auto) 0.76 K/uL Eosinophils # (Auto) 0.26 K/uL Basophils # (Auto) 0.03 K/uL RDW Standard Deviation 47.2 fL RDW Coefficient of Variation 14.4 % Immature Granulocyte % (Auto) 1.2 % Immature Granulocyte # (Auto) 0.11 K/uL Red Blood Cell Morphology Unremarkable Sodium Level 141 mmol/L Potassium Level 4.6 mmol/L Chloride Level 104 mmol/L Carbon Dioxide Level 31 mmol/L Anion Gap 6.0 mmol/L Blood Urea Nitrogen 36 mg/dl Creatinine 1.58 mg/dl Est Creatinine Clear Calc Drug Dose 36.2 ml/min Estimated GFR () 38.6 Estimated GFR (Non- 33.3 BUN/Creatinine Ratio 22.8 Random Glucose 232 mg/dl Calcium Level 8.3 mg/dl Magnesium Level 2.0 mg/dl Test 07/15/17 20:15 Bedside Glucose 195 mg/dl Assessment and Plan 67 y/o F Hx COPD, HTN, CAD, DMII, gastroparesis, CKD III, anemia, obese - recently D/Cd following admission for Urosepsis with ESBL in addition to Cdiff which emerged during hospitalization. Pt has had persistent diarrhea for over one wk and today developed hematochezia describing dark, red bowel movements. She denies abdominal pain, N/V, lightheadedness, palpitations or fevers. The pt has a port owing to long-term treatment for ESBL with Ertapenem. She is taking oral Vancomycin for C-diff. It is noted that in May 22 the pt was life-flighted to [facility] due to critical PNM and had spent 2 weeks in rehab when she was transferred back to the hospital due to the above UTI. GI bleed and acute blood loss anemia - this is painless bleeding, no abdominal pain initially, now with some mild abd pain in lower quadrants. Hb had decreased 2 grams upon arrival from previous admission, was transfused 2 units PRBCs on admission- source of bleed, upper vs lower not clear as stool is dark red and sometimes described as black.. CT abdomen/pelvis unrevealing. Does have C. difficile colitis which could be the source for bleeding, versus diverticular bleeding, versus upper GI. EGD showed multiple cratered ulcers with no active bleeding. Hemoglobin dropped today to 8.1 from 9.0, still with some esthela stool. Unclear if continued active bleeding vs old blood. -continue on telemetry -Continue PPI but switch to po bid -continue carafate 1 gm qid x 10 days -Appreciate GI consultation -Colonoscopy not ideal in the setting of C. difficile colitis -continue to follow CBC and for observation for continued bleeding C diff colitis- she will remain on by mouth Vanc 125 mg po qid through 07/22 as originally planned -switch antibiotics to Florinex which seems to be ok in setting of PICC line as far as risk for fungal infection ESBL UTI and previous ESBL Escherichia coli bacteremia - cont Ertapenem through 07/22 through her PICC line COPD/Chronic respiratory failure - no evidence of acute exacerbation - denies SOB above baseline - cont prescribed inhalers and and supplemental 02 CKD stage III - creat is approximately at baseline around 1.58 -Follow PRP Avoid nephrotoxins -Renally dose all medications CAD/HTN - no evidence of ACS - ASA is held in the setting of bleeding. Blood pressures are actually a little hypertensive, hydrochlorothiazide is being held due to hypovolemia -Continue losartan, statin, Coreg -Continue to hold aspirin -Continue telemetry DONG - CPAP provided HS DM II with gastroparesis - now with continued hyperglycemia. Hemoglobin A1c elevated at 8.4%, uncontrolled -increase Lantus to 10 units in AM and 15 units qPM -Accu-Cheks and sliding scale insulin-gave carb coverage and lowered correction factor today -Will need improved control upon discharge and follow up with PCP -CDE gave her a written sliding scale to use at home based on glucose readings as pt not adept at carb counting Prophylaxis-SCDs only due to GI bleeding, PPI and H2 krishan twice a day Disposition-likely back to rehabilitation when stable in 1-2 days Full code
[2017-07-16] VITALS (12 sets, daily range): BP systolic 139–186; BP diastolic 55–91; PULSE 62–80; TEMP 36.3–37.1; O2SAT 95–98
[2017-07-16 07:58] LABS: BASO % 0.3 %; BASO ABS # 0.02 K/uL (0-0.2); EOS % 2.7 %; HEMATOCRIT 22.3 % (37-47); IG% 0.6 %; LYMPH % 24.6 %; LYMPH ABS # 1.66 K/uL (1.2-3.4); MEAN CELL VOLUME 90.7 fL (80-100); MEAN CORPUSCULAR HEMOGLOBIN 28.9 pg (25-34); MEAN CORPUSCULAR HGB CONC 31.8 g/dl (32-36); MEAN PLATELET VOLUME 8.8 fL (7.4-10.4); MONO % 8.7 %; NEUT % 63.1 %; PLATELET COUNT 194 K/uL (130-400); RED BLOOD COUNT 2.46 M/uL (4.2-5.4); WHITE BLOOD COUNT 6.75 K/uL (4.8-10.8)
[2017-07-16] MEDS: BISACODYL 10 MG SUPP PR SCH (08:03)
[2017-07-16] MEDS: VANCOMYCIN HCL 125 MG/2.5ML SOLN PO SCH ×4 (08:08→21:42)
[2017-07-16] MEDS: SUCRALFATE 1 GM TAB PO SCH ×4 (08:09→21:42)
[2017-07-16] MEDS: FLUTICASONE/SALMETEROL 250/50 (ADVAIR) 14 PUFF/1 INHALER INH SCH ×2 (08:09→21:42)
[2017-07-16] MEDS: RASPBERRY SYRUP 5 ML UDP PO SCH ×4 (08:09→21:42)
[2017-07-16] MEDS: PANTOprazole SOD 40 MG TAB PO SCH ×2 (08:10→21:42)
[2017-07-16] MEDS: LACTOBACILLUS ACIDOPHILUS (FLORANEX) TAB PO SCH ×3 (08:10→17:30)
[2017-07-16] MEDS: FAMOTIDINE 20 MG TAB PO SCH ×2 (08:10→21:42)
[2017-07-16] MEDS: CARVEDILOL 12.5 MG TAB PO SCH ×2 (08:10→21:43)
[2017-07-16] MEDS: ESCITALOPRAM OXALATE 10 MG TAB PO SCH (08:10)
[2017-07-16] MEDS: MONTELUKAST SOD 10 MG TAB PO SCH (08:11)
[2017-07-16] MEDS: LOSARTAN POTASSIUM 50 MG TAB PO SCH (08:11)
[2017-07-16] MEDS: COLLAGENASE OINT 30 GM TUBE EXT SCH (08:13)
[2017-07-16] MEDS: INSULIN ASPART 100 UNITS/ML 3 ML PEN SC SCH ×4 (08:16→21:53)
[2017-07-16] MEDS: INSULIN GLARGINE SOLOSTAR 100 UNITS/ML 3 ML PEN SC SCH ×2 (08:18→21:54)
[2017-07-16 08:24] LABS: COMPLETE YES
[2017-07-16 08:31] LABS: BUN/CREATININE RATIO 19.2 (10-20); CALCIUM 8.2 mg/dl (8.5-10.1); CREATININE 1.57 mg/dl (0.60-1.20); MAGNESIUM 1.6 mg/dl (1.8-2.4); POTASSIUM 4.4 mmol/L (3.5-5.1)
[2017-07-16] MEDS: ERTAPENEM IV 1 GM in SODIUM CHLOR 0.9% AD-VAN 50ML IV SCH (10:10)
--- NOTE | 2017-07-16 18:34 | Progress Note ---
Subjective Date of Service: Jul 16, 2017. Subjective Pt evaluation today including: conversation w/ patient, physical exam, chart review, lab review, review of studies, review of inpatient medication list Pain: no pain Voiding: no voiding problems Pt is seen and examined by me. Pt denies cp, sob, abdominal pain, nausea, vomiting. Pt start to have mild soft stool formation and still esthela stool. Pt hemoglobin drooped. Problem List Medical Problems: (1) Acute renal failure Status: Acute (2) Anemia Status: Acute (3) Dehydration Status: Acute (4) Diarrhea Status: Acute (5) GI bleed Status: Acute (6) Hyperglycemia Status: Acute (7) Hypomagnesemia Status: Acute (8) Renal insufficiency Status: Acute (9) UTI (urinary tract infection) Status: Acute Review of Systems All Other Systems: Reviewed and Negative Medications Medications (Trade) Dose Ordered Sig/Javon Route Start Time Stop Time Status Last Admin Dose Admin Pantoprazole Sodium (Protonix Tab) 40 mg BID PO 07/15/17 21:00 08/14/17 20:59 07/16/17 08:10 40 MG Lactobacillus Acidophilus (Floranex Tab) 4 tab TIDM PO 07/15/17 16:45 08/14/17 16:44 07/16/17 08:10 4 TAB Insulin Glargine (Lantus Solostar Pen) 10 units QAM SC 07/16/17 09:00 08/14/17 08:59 07/16/17 08:18 10 UNITS Objective Vital Signs Date Time Temp Pulse Resp B/P (MAP) Pulse Ox O2 Delivery O2 Flow Rate FiO2 07/16/17 08:35 36.6 62 18 163/91 (115) 98 CPAP 4.0 07/16/17 04:40 36.3 68 20 139/69 (92) 97 CPAP 07/16/17 04:00 CPAP 4.0 07/16/17 00:38 36.9 67 20 176/74 (108) 97 CPAP 07/16/17 00:00 CPAP 4.0 07/15/17 20:00 Nasal Cannula 2.0 07/15/17 18:43 37.0 73 20 135/80 (98) 99 Nasal Cannula 2.0 07/15/17 16:00 36.8 67 20 138/92 (107) 99 Nasal Cannula 2.0 07/15/17 16:00 Nasal Cannula 2.0 07/15/17 13:19 36.8 82 18 152/76 (101) 95 07/15/17 12:00 Nasal Cannula 2.0 Physical Exam Comments: General Appearance: WD/WN, no apparent distress, + obese Eyes: normal inspection, sclerae normal ENT: hearing grossly normal Neck: trachea midline Respiratory/Chest: no respiratory distress, no accessory muscle use, + decreased breath sounds (throughout due to body habitus) Cardiovascular: regular rate, rhythm, no edema, no gallop, no murmur Abdomen: normal bowel sounds, soft, Extremities: non-tender, normal inspection, no pedal edema, no calf tenderness Neurologic/Psychiatric: alert, normal mood/affect, oriented x 3 Skin: normal color, warm/dry, no rash Laboratory Results Last 24 Hours Test 07/15/17 11:32 07/15/17 16:06 07/15/17 20:15 07/16/17 06:41 Bedside Glucose 272 mg/dl 272 mg/dl 195 mg/dl 163 mg/dl Test 07/16/17 07:40 White Blood Count 6.75 K/uL Red Blood Count 2.46 M/uL Hemoglobin 7.1 g/dL Hematocrit 22.3 % Mean Corpuscular Volume 90.7 fL Mean Corpuscular Hemoglobin 28.9 pg Mean Corpuscular Hemoglobin Concent 31.8 g/dl Platelet Count 194 K/uL Mean Platelet Volume 8.8 fL Neutrophils (%) (Auto) 63.1 % Lymphocytes (%) (Auto) 24.6 % Monocytes (%) (Auto) 8.7 % Eosinophils (%) (Auto) 2.7 % Basophils (%) (Auto) 0.3 % Neutrophils # (Auto) 4.26 K/uL Lymphocytes # (Auto) 1.66 K/uL Monocytes # (Auto) 0.59 K/uL Eosinophils # (Auto) 0.18 K/uL Basophils # (Auto) 0.02 K/uL RDW Standard Deviation 47.2 fL RDW Coefficient of Variation 14.3 % Immature Granulocyte % (Auto) 0.6 % Immature Granulocyte # (Auto) 0.04 K/uL Sodium Level 139 mmol/L Potassium Level 4.4 mmol/L Chloride Level 103 mmol/L Carbon Dioxide Level 33 mmol/L Anion Gap 4.0 mmol/L Blood Urea Nitrogen 30 mg/dl Creatinine 1.57 mg/dl Est Creatinine Clear Calc Drug Dose 36.9 ml/min Estimated GFR () 38.9 Estimated GFR (Non- 33.5 BUN/Creatinine Ratio 19.2 Random Glucose 149 mg/dl Calcium Level 8.2 mg/dl Magnesium Level 1.6 mg/dl Assessment and Plan 67 y/o F Hx COPD, HTN, CAD, DMII, gastroparesis, CKD III, anemia, obese - recently D/Cd following admission for Urosepsis with ESBL in addition to Cdiff which emerged during hospitalization. Pt has had persistent diarrhea for over one wk and today developed hematochezia describing dark, red bowel movements. She denies abdominal pain, N/V, lightheadedness, palpitations or fevers. The pt has a port owing to long-term treatment for ESBL with Ertapenem. She is taking oral Vancomycin for C-diff. It is noted that in May 22 the pt was life-flighted to [place] due to critical PNM and had spent 2 weeks in rehab when she was transferred back to the hospital due to the above UTI. GI bleed and acute blood loss anemia - this is painless bleeding, no abdominal pain initially, now with some mild abd pain in lower quadrants. Hb had decreased 2 grams upon arrival from previous admission, was transfused 2 units PRBCs on admission- source of bleed, upper vs lower not clear as stool is dark red and sometimes described as black.. CT abdomen/pelvis unrevealing. Does have C. difficile colitis which could be the source for bleeding, versus diverticular bleeding, versus upper GI. EGD showed multiple cratered ulcers with no active bleeding. -Hemoglobin dropped today to 7.1 from 8.0, still with some esthela stool. Unclear if continued active bleeding vs old blood.type and cross and transfuse 1 unit of PRBC.- clinically patient is stable.- continue to monitor h/h q12 hour for now. -continue on telemetry -Continue PPI but switch to po bid -continue carafate 1 gm qid x 10 days -Appreciate GI consultation -Colonoscopy not ideal in the setting of C. difficile colitis C diff colitis- she will remain on by mouth Vanc 125 mg po qid through 07/22 as originally planned -switch antibiotics to Florinex which seems to be ok in setting of PICC line as far as risk for fungal infection ESBL UTI and previous ESBL Escherichia coli bacteremia - cont Ertapenem through 07/22 through her PICC line COPD/Chronic respiratory failure - no evidence of acute exacerbation - denies SOB above baseline - cont prescribed inhalers and and supplemental 02 CKD stage III - creat is approximately at baseline around 1.5 -Follow PRP daily -Avoid nephrotoxins -Renally dose all medications CAD/HTN - no evidence of ACS - ASA is held in the setting of bleeding. Blood pressures are actually a little hypertensive, hydrochlorothiazide is being held due to hypovolemia -Continue losartan, statin, Coreg -Continue to hold aspirin -Continue telemetry DONG - CPAP provided HS DM II with gastroparesis - now with continued hyperglycemia. Hemoglobin A1c elevated at 8.4%, uncontrolled -increase Lantus to 10 units in AM and 15 units qPM -Accu-Cheks and sliding scale insulin-gave carb coverage and lowered correction factor today -Will need improved control upon discharge and follow up with PCP -CDE gave her a written sliding scale to use at home based on glucose readings as pt not adept at carb counting Prophylaxis-SCDs only due to GI bleeding, PPI and H2 krishan twice a day Disposition-likely back to rehabilitation when stable Full code Continued [facility] stay due to: other Discharge planning: rehab hospital
[2017-07-16] MEDS: MAGNESIUM OXIDE 400 MG TAB PO SCH (21:42)
[2017-07-16] MEDS: PRAVASTATIN SOD 40 MG TAB PO SCH (21:42)
[2017-07-17 04:03] VITALS: BP 190/78; PULSE 63; TEMP 36.4; O2SAT 99
[2017-07-17 07:50] LABS: HEMATOCRIT 26.8 % (37-47)
[2017-07-17] MEDS: LACTOBACILLUS ACIDOPHILUS (FLORANEX) TAB PO SCH ×3 (08:02→17:32)
[2017-07-17] MEDS: PANTOprazole SOD 40 MG TAB PO SCH ×2 (08:03→21:12)
[2017-07-17] MEDS: LOSARTAN POTASSIUM 50 MG TAB PO SCH (08:03)
[2017-07-17] MEDS: MONTELUKAST SOD 10 MG TAB PO SCH (08:03)
[2017-07-17] MEDS: BISACODYL 10 MG SUPP PR SCH (08:04)
[2017-07-17] MEDS: VANCOMYCIN HCL 125 MG/2.5ML SOLN PO SCH ×4 (08:04→21:11)
[2017-07-17] MEDS: RASPBERRY SYRUP 5 ML UDP PO SCH ×4 (08:04→21:11)
[2017-07-17] MEDS: ESCITALOPRAM OXALATE 10 MG TAB PO SCH (08:05)
[2017-07-17] MEDS: SUCRALFATE 1 GM TAB PO SCH ×4 (08:05→21:12)
[2017-07-17] MEDS: MAGNESIUM OXIDE 400 MG TAB PO SCH ×2 (08:05→21:11)
[2017-07-17] MEDS: CARVEDILOL 12.5 MG TAB PO SCH ×2 (08:05→21:12)
[2017-07-17] MEDS: COLLAGENASE OINT 30 GM TUBE EXT SCH (08:06)
[2017-07-17] MEDS: FLUTICASONE/SALMETEROL 250/50 (ADVAIR) 14 PUFF/1 INHALER INH SCH ×2 (08:06→21:12)
[2017-07-17] MEDS: INSULIN ASPART 100 UNITS/ML 3 ML PEN SC SCH ×4 (08:19→21:14)
[2017-07-17] MEDS: INSULIN GLARGINE SOLOSTAR 100 UNITS/ML 3 ML PEN SC SCH ×2 (08:20→21:15)
[2017-07-17] MEDS: FAMOTIDINE 20 MG TAB PO SCH ×2 (09:00→21:12)
[2017-07-17] MEDS: ERTAPENEM IV 1 GM in SODIUM CHLOR 0.9% AD-VAN 50ML IV SCH (10:30)
[2017-07-17 11:55] VITALS: BP 190/92; PULSE 67; TEMP 36.9; O2SAT 98
--- NOTE | 2017-07-17 13:06 | Progress Note ---
Subjective Date of Service: Jul 17, 2017. Subjective Pt evaluation today including: conversation w/ patient, physical exam, chart review, lab review Voiding: no voiding problems, no incontinence No more bloody bowel movement since yesterday, stool start to become more solid. No cp, dizziness, palpitation, and LOC. Problem List Medical Problems: (1) Acute renal failure Status: Acute (2) Anemia Status: Acute (3) Dehydration Status: Acute (4) Diarrhea Status: Acute (5) GI bleed Status: Acute (6) Hyperglycemia Status: Acute (7) Hypomagnesemia Status: Acute (8) Renal insufficiency Status: Acute (9) UTI (urinary tract infection) Status: Acute Review of Systems All Other Systems: Reviewed and Negative Medications Medications (Trade) Dose Ordered Sig/Javon Route Start Time Stop Time Status Last Admin Dose Admin Magnesium Oxide (Mag-Ox Tab) 200 mg BID PO 07/16/17 21:00 07/19/17 20:59 07/17/17 08:05 200 MG Objective Vital Signs Date Time Temp Pulse Resp B/P (MAP) Pulse Ox O2 Delivery O2 Flow Rate FiO2 07/17/17 11:55 36.9 67 18 190/92 (124) 98 Nasal Cannula 2.0 07/17/17 08:00 Nasal Cannula 2.0 07/17/17 04:03 36.4 63 18 190/78 (115) 99 CPAP 07/17/17 04:00 Nasal Cannula 2.0 07/17/17 00:00 Nasal Cannula 2.0 07/16/17 23:50 37.1 67 18 164/91 (115) 98 CPAP 07/16/17 20:00 Nasal Cannula 2.0 07/16/17 19:12 36.8 72 18 180/71 (107) 98 Nasal Cannula 4.0 07/16/17 17:15 36.9 77 20 145/64 95 07/16/17 16:15 36.9 80 20 186/70 95 07/16/17 16:00 Nasal Cannula 2.0 07/16/17 15:11 36.9 69 18 157/83 98 07/16/17 14:41 37.1 69 18 164/85 98 07/16/17 14:11 37.0 71 18 144/55 98 07/16/17 14:07 37.0 68 18 147/77 97 Physical Exam General Appearance: WD/WN, no apparent distress Eyes: EOMI Neck: supple Respiratory/Chest: chest non-tender, lungs clear, normal breath sounds Cardiovascular: regular rate, rhythm, no edema, no gallop, no murmur Abdomen: normal bowel sounds, non tender, soft Neurologic/Psychiatric: alert, normal mood/affect, oriented x 3 Skin: warm/dry, no rash Lymphatic: no adenopathy Laboratory Results Last 24 Hours Test 07/16/17 16:26 07/16/17 20:56 07/17/17 06:55 07/17/17 07:31 Bedside Glucose 188 mg/dl 205 mg/dl 204 mg/dl Hemoglobin 8.7 g/dL Hematocrit 26.8 % Test 07/17/17 10:50 Bedside Glucose 189 mg/dl Assessment and Plan 67 y/o F Hx COPD, HTN, CAD, DMII, gastroparesis, CKD III, anemia, obese - recently D/Cd following admission for Urosepsis with ESBL in addition to Cdiff which emerged during hospitalization. Pt has had persistent diarrhea for over one wk and today developed hematochezia describing dark, red bowel movements. She denies abdominal pain, N/V, lightheadedness, palpitations or fevers. The pt has a port owing to long-term treatment for ESBL with Ertapenem. She is taking oral Vancomycin for C-diff. It is noted that in May 22 the pt was life-flighted to [place] due to critical PNM and had spent 2 weeks in rehab when she was transferred back to the hospital due to the above UTI. GI bleed and acute blood loss anemia - this is painless bleeding, no abdominal pain initially, now with some mild abd pain in lower quadrants. Hb had decreased 2 grams upon arrival from previous admission, was transfused 2 units PRBCs on admission- source of bleed, upper vs lower not clear as stool is dark red and sometimes described as black.. CT abdomen/pelvis unrevealing. Does have C. difficile colitis which could be the source for bleeding, versus diverticular bleeding, versus upper GI. EGD showed multiple cratered ulcers with no active bleeding. -Hemoglobin today 8.7 after one unit of PRBC -clinically patient is stable. -continue to monitor h/h q12 hour for now. -Continue PPI but switch to po bid -continue carafate 1 gm qid x 10 days -Appreciate GI consultation -Colonoscopy not ideal in the setting of C. difficile colitis C diff colitis- she will remain on by mouth Vanc 125 mg po qid through 07/22 as originally planned -switch antibiotics to Florinex which seems to be ok in setting of PICC line as far as risk for fungal infection ESBL UTI and previous ESBL Escherichia coli bacteremia - cont Ertapenem through 07/22 through her PICC line COPD/Chronic respiratory failure - no evidence of acute exacerbation - denies SOB above baseline - cont prescribed inhalers and and supplemental 02 CKD stage III - creat is approximately at baseline around 1.5 -Follow PRP daily -Avoid nephrotoxins -Renally dose all medications CAD/HTN - no evidence of ACS - ASA is held in the setting of bleeding. Blood pressures are actually a little hypertensive, hydrochlorothiazide is being held due to hypovolemia -Continue losartan, statin, Coreg -Continue to hold aspirin -Continue telemetry DONG - CPAP provided HS DM II with gastroparesis - now with continued hyperglycemia. Hemoglobin A1c elevated at 8.4%, uncontrolled -increase Lantus to 10 units in AM and 15 units qPM -Accu-Cheks and sliding scale insulin-gave carb coverage and lowered correction factor today -Will need improved control upon discharge and follow up with PCP -CDE gave her a written sliding scale to use at home based on glucose readings as pt not adept at carb counting Prophylaxis-SCDs only due to GI bleeding, PPI and H2 krishan twice a day Disposition-likely back to rehabilitation when stable Hgb Full code Continued [facility] stay due to: other Discharge planning: rehab hospital
[2017-07-17] MEDS ORDERED: NURSING VERBAL MED ORDER ONE (14:15)
[2017-07-17 14:25] VITALS: BP 192/82; PULSE 67
[2017-07-17] MEDS ORDERED: HydrALAZINE HCL 20 MG/ML VIAL IV. PRN (14:30)
[2017-07-17 15:51] VITALS: BP 176/86; PULSE 71; TEMP 36.8; O2SAT 98
[2017-07-17 18:49] LABS: HEMATOCRIT 25.1 % (37-47)
[2017-07-17 18:51] VITALS: BP 183/82; PULSE 76; TEMP 36.8; O2SAT 96
[2017-07-17] MEDS: PRAVASTATIN SOD 40 MG TAB PO SCH (21:11)
[2017-07-17 23:16] VITALS: BP 174/87; PULSE 69; TEMP 36.9; O2SAT 97
[2017-07-18 04:34] VITALS: BP 172/77; PULSE 66; TEMP 36.9; O2SAT 96
[2017-07-18 07:30] LABS: BASO % 0.4 %; BASO ABS # 0.03 K/uL (0-0.2); EOS % 2.4 %; HEMATOCRIT 25.2 % (37-47); IG% 0.3 %; LYMPH % 23.9 %; LYMPH ABS # 1.62 K/uL (1.2-3.4); MEAN CORPUSCULAR HEMOGLOBIN 29.2 pg (25-34); MEAN CORPUSCULAR HGB CONC 32.1 g/dl (32-36); MEAN PLATELET VOLUME 8.8 fL (7.4-10.4); MONO % 9.6 %; NEUT % 63.4 %; PLATELET COUNT 175 K/uL (130-400); RED BLOOD COUNT 2.77 M/uL (4.2-5.4); WHITE BLOOD COUNT 6.79 K/uL (4.8-10.8)
[2017-07-18 07:35] VITALS: BP 177/79; PULSE 78; TEMP 36.8; O2SAT 92
[2017-07-18 08:06] LABS: BUN/CREATININE RATIO 16.2 (10-20); CALCIUM 8.7 mg/dl (8.5-10.1); CREATININE 1.45 mg/dl (0.60-1.20); MAGNESIUM 1.1 mg/dl (1.8-2.4); POTASSIUM 4.4 mmol/L (3.5-5.1)
[2017-07-18] MEDS: INSULIN ASPART 100 UNITS/ML 3 ML PEN SC SCH ×2 (08:07→12:16)
[2017-07-18 08:08] LABS: ALB/GLOB RATIO 0.7 (0.9-2)
[2017-07-18] MEDS: FAMOTIDINE 20 MG TAB PO SCH (08:08)
[2017-07-18] MEDS: ESCITALOPRAM OXALATE 10 MG TAB PO SCH (08:09)
[2017-07-18] MEDS: CARVEDILOL 12.5 MG TAB PO SCH (08:09)
[2017-07-18] MEDS: SUCRALFATE 1 GM TAB PO SCH ×2 (08:09→12:09)
[2017-07-18] MEDS: LOSARTAN POTASSIUM 50 MG TAB PO SCH (08:10)
[2017-07-18] MEDS: FLUTICASONE/SALMETEROL 250/50 (ADVAIR) 14 PUFF/1 INHALER INH SCH (08:10)
[2017-07-18] MEDS: MONTELUKAST SOD 10 MG TAB PO SCH (08:10)
[2017-07-18] MEDS: PANTOprazole SOD 40 MG TAB PO SCH (08:10)
[2017-07-18] MEDS: COLLAGENASE OINT 30 GM TUBE EXT SCH (08:10)
[2017-07-18] MEDS: LACTOBACILLUS ACIDOPHILUS (FLORANEX) TAB PO SCH ×2 (08:11→12:09)
[2017-07-18] MEDS: RASPBERRY SYRUP 5 ML UDP PO SCH ×2 (08:11→12:07)
[2017-07-18] MEDS: INSULIN GLARGINE SOLOSTAR 100 UNITS/ML 3 ML PEN SC SCH (08:13)
[2017-07-18] MEDS: VANCOMYCIN HCL 125 MG/2.5ML SOLN PO SCH ×2 (08:14→12:07)
[2017-07-18] MEDS: ERTAPENEM IV 1 GM in SODIUM CHLOR 0.9% AD-VAN 50ML IV SCH (08:14)
[2017-07-18 08:26] LABS: ANISOCYTOSIS PRESENT; COMPLETE YES
[2017-07-18] MEDS: BISACODYL 10 MG SUPP PR SCH (09:00)
[2017-07-18] MEDS: MAGNESIUM OXIDE 400 MG TAB PO SCH (09:14)
[2017-07-18 11:57] VITALS: BP 183/72; PULSE 74; O2SAT 95
[2017-07-18] MEDS ORDERED: MAGNESIUM SULFATE 1GM / D5W 1 GM in PREMIXED IN D5W 100 ML IV ONE (12:00)
[2017-07-18] MEDS ORDERED: HYDROCHLOROTHIAZIDE 25 MG TAB PO ONE (12:00)
[2017-07-18 12:22] VITALS: BP 146/80; PULSE 69; TEMP 36.8; O2SAT 94
[2017-07-18] MEDS ORDERED: INSDGIPEN SC ×2 (12:32)
[2017-07-18] MEDS ORDERED: PRT40 PO (12:35)
[2017-07-18] MEDS ORDERED: SUCR1TAB PO (12:35)
--- NOTE | 2017-07-18 12:38 | Discharge Instructions ---
Discharge Instructions Date of Service Jul 18, 2017. Admission Reason for Admission: C Difficile Colitis, Gi Bleed Discharge Discharge Diagnosis / Problem: GI bleed Discharge Goals Goal(s): Decrease discomfort, Improve function, Increase independence, Improve disease control, Learn about illness, Diagnostic testing, Therapeutic intervention, Prevent Disease Progression Activity Recommendations Activity Limitations: resume your previous activity Exercise/Sports Limitations: as tolerated . Instructions / Follow-Up Instructions / Follow-Up Patient to be discharged back to [facility] Admitted with GI bleed Please note changes in medications, protonix 40 mg tablet twice a day, and carafate 1 gram four times a day Note increase in lantus medication, twice a day Please continue antibiotics as indicated Follow up with primary care provider at [facility] in 1-2 weeks Current Hospital Diet Patient's current hospital diet: Diabetes Type 2 Diet, Low Fiber Diet Discharge Diet Recommended Diet: Diabetes Type 2 Diet, Low Fiber Diet Procedures Procedures Performed: EGD WITH BX Pending Studies Studies pending at discharge: no Laboratory Results Hemoglobin A1c Test 07/06/17 16:15 Range/Units Estimated Average Glucose 194 mg/dl Hemoglobin A1c 8.4 H 4.5-5.6 % Medical Emergencies . Who to Call and When: Medical Emergencies: If at any time you feel your situation is an emergency, please call 911 immediately. . Non-Emergent Contact Non-Emergency issues call your: Primary Care Provider Call Non-Emergent contact if: you have a fever . . "Provider Documentation" section prepared by Rigoberto Abraham. . VTE Core Measure Inpt VTE Proph given/why not?: SCD's
[2017-07-18 12:53] VITALS: BP 146/80; PULSE 69; TEMP 36.8; O2SAT 94
--- NOTE | 2017-07-18 14:52 | Discharge Summary ---
Discharge Summary Date of Service Jul 18, 2017. Discharge Summary Admission Date: Jul 13, 2017 at 22:50 Discharge Date: Jul 18, 2017 Discharge Disposition: Rehab Principal Diagnosis: GI bleed Immunizations: Have You Had Influenza Vaccine: Yes History of Tetanus Vaccine?: Yes History of Pneumococcal: Yes History of Hepatitis B Vaccine: Yes Consultations: GI Medication Reconciliation New Medications: Insulin Glargine (Lantus Solostar) 100 Unit/Ml Inj 10 UNITS SC QAM for 30 Days Insulin Glargine (Lantus Solostar) 100 Unit/Ml Inj 15 UNITS SC QPM for 30 Days Pantoprazole (Pantoprazole Sodium) 40 Mg Tab 40 MG PO BID, #60 TAB Sucralfate (Sucralfate) 1 Gm Tab 1 GM PO QID, #120 TAB Continued Medications: Acetaminophen (Tylenol) 500 Mg Tab 500 MG PO Q4 PRN for Pain, TAB Albuterol Hfa (Ventolin Hfa) 200 Puffs/09563 Mcg Aers 2-4 PUFFS INH Q6H PRN for , #1 INHALER Aspirin (Aspirin 81) 81 Mg Tab 81 MG PO DAILY Bisacodyl (Bisacodyl) 10 Mg Sup 10 MG NH DAILY Carvedilol (Coreg) 12.5 Mg Tab 12.5 MG PO BID for 90 Days, #180 TAB 1 Refill Collagenase (Santyl) 250 Unit/Gm Oin 1 APPLN TOP DAILY Docusate Sodium (Docusate Sodium) 100 Mg Cap 100 MG PO BID, CAP Ertapenem Sodium (Invanz) 1 Gm Inj 1 GM IV Q24H for 12 Days, #12 VIAL Escitalopram Oxalate (Escitalopram Oxalate) 10 Mg Tab 10 MG PO QAM for 30 Days, #30 DOSE Famotidine (Pepcid) 20 Mg Tab 20 MG PO BID, TAB Fluticasone Furoate-Vilanterol (Breo Ellipta) 1 Inh Inh 1 PUFF INH DAILY Glucagon (Glucagon Emergency Kit) 1 Mg Kit 1 MG SC UD Hydrochlorothiazide (Hctz) 25 Mg Tab 25 MG PO DAILY, TAB Insulin Aspart (Novolog Flexpen) 100 Units/Ml Inj 0 UNITS SC ACHS for 30 Days, #1 PEN Lactobacillus Acidophilus (Floranex) 1 Tab Tab 4 TAB PO TIDM LACTOBACILLUS ACIDOPHILLUS AND BULGARICUS Losartan Potassium (Cozaar) 100 Mg Tab 100 MG PO DAILY, TAB Magnesium Hydroxide (Milk of Magnesia) 30 Ml Susp 30 ML PO DAILY PRN for Montelukast Sodium (Singulair) 10 Mg Tab 10 MG PO DAILY, TAB Multiple Vitamins W/ Minerals (Multi Vitamin and Mineral) 1 Tab Tab 1 TAB PO DAILY Polyethylene Glycol 3350 (Miralax) 1 Pow Pow 17 GM PO DAILY PRN for , #255 GM Potassium Chloride (Potassium Chloride ER) 20 Meq Tabcr 20 MEQ PO DAILY Pravastatin Sod (Pravastatin Sodium) 40 Mg Tab 40 MG PO HS Sennosides-Docusate Sodium (Docusate Sodium/Senna) 1 Tab Tab 1 TAB PO QDL Sodium Phosphates (Enema) 1 Clarita Clarita 133 ML NH DAILY PRN for Vancomycin HCl (Vancomycin HCl) 100 Mg/Ml Inj 125 MG PO QID for 12 Days, #48 DOSE [Glucose Oral Gel] () Unknown Dose Discontinued Medications: Insulin Glargine (Lantus) 100 Unit/Ml Inj 15 UNITS SC QAM, VIAL Discharge Exam Review of Systems: Constitutional: No fever, No chills, No sweats, No weight loss, No weakness ENT: No hearing loss, No unusual epistaxis, No nasal symptoms, No sore throat, No tinnitus Respiratory: + shortness of breath, + dyspnea on exertion, No cough, No sputum, No wheezing, No dyspnea at rest, No hemoptysis Cardiovascular: No chest pain, No orthopnea, No PND, No edema, No claudication Abdomen: No pain, No nausea, No diarrhea, No constipation Musculoskeletal: No joint pain, No muscle pain, No swelling, No calf pain Genitourinary - Female: No dysuria, No urinary frequency, No urinary urgency , No urinary incontinence Neurologic: No memory loss, No paralysis, No weakness, No numbness/tingling Psychiatric: No depression symptoms, No anhedonism, No anxiety, No insomnia Hematologic / Lymphatic: No abnormal bleeding/bruising, No clotting problems , No swollen lymph nodes Integumentary: No rash, No itch Physical Exam: General Appearance: WD/WN, no apparent distress Eyes: normal inspection, PERRL, EOMI, sclerae normal Neck: supple, no adenopathy, thyroid normal, no JVD Respiratory/Chest: chest non-tender, lungs clear, + decreased breath sounds , + wheezing Cardiovascular: regular rate, rhythm, no edema, no gallop, no JVD Abdomen / GI: normal bowel sounds, non tender, soft, no organomegaly Extremities: normal inspection, no calf tenderness, normal capillary refill , no pedal edema Neurologic/Psychiatric: no motor/sensory deficits, alert, normal mood/affect , oriented x 3 Skin: normal color, warm/dry, no rash Lymphatic: no adenopathy Hospital Course 67 y/o F Hx COPD, HTN, CAD, DMII, gastroparesis, CKD III, anemia, obese - recently D/Cd following admission for Urosepsis with ESBL in addition to Cdiff which emerged during hospitalization. Pt has had persistent diarrhea for over one wk and today developed hematochezia describing dark, red bowel movements. She denies abdominal pain, N/V, lightheadedness, palpitations or fevers. The pt has a port owing to long-term treatment for ESBL with Ertapenem. She is taking oral Vancomycin for C-diff. It is noted that in May 22 the pt was life-flighted to [place] due to critical PNM and had spent 2 weeks in rehab when she was transferred back to the hospital due to the above UTI. GI bleed and acute blood loss anemia - this is painless bleeding, no abdominal pain initially, now with some mild abd pain in lower quadrants. Hb had decreased 2 grams upon arrival from previous admission, was transfused 2 units PRBCs on admission- source of bleed, upper vs lower not clear as stool is dark red and sometimes described as black.. CT abdomen/pelvis unrevealing. Does have C. difficile colitis which could be the source for bleeding, versus diverticular bleeding, versus upper GI. EGD showed multiple cratered ulcers with no active bleeding. -Hemoglobin stable (one unit of PRBC transfused 07/17), baseline 9-10 -clinically patient is stable. -continue to monitor h/h q12 hour for now. -Discharge on PPI BID -Continue carafate 1 gm QID -Appreciate GI consultation -Colonoscopy not ideal in the setting of C. difficile colitis C diff colitis- she will remain on by mouth Vanc 125 mg po qid through 07/22 as originally planned -switch antibiotics to Florinex which seems to be ok in setting of PICC line as far as risk for fungal infection ESBL UTI and previous ESBL Escherichia coli bacteremia - cont Ertapenem through 07/22 through her PICC line COPD/Chronic respiratory failure - no evidence of acute exacerbation - denies SOB above baseline - cont prescribed inhalers and and supplemental 02 CKD stage III - creat is approximately at baseline around 1.5 -Follow PRP daily -Avoid nephrotoxins -Renally dose all medications CAD/HTN - no evidence of ACS - ASA is held in the setting of bleeding. Blood pressures are actually a little hypertensive, hydrochlorothiazide is being held due to hypovolemia -Continue losartan, statin, Coreg -Continue to hold aspirin -Continue telemetry DONG - CPAP provided HS DM II with gastroparesis - now with continued hyperglycemia. Hemoglobin A1c elevated at 8.4%, uncontrolled -New dose on discharge Lantus to 10 units in AM and 15 units qPM -Accu-Cheks and sliding scale insulin-gave carb coverage and lowered correction factor today -Will need improved control upon discharge and follow up with PCP -CDE gave her a written sliding scale to use at home based on glucose readings as pt not adept at carb counting Prophylaxis-SCDs only due to GI bleeding, PPI and H2 krishan twice a day FULL CODE Total Time Spent: Greater than 30 minutes This includes examination of the patient, discharge planning, medication reconciliation, and communication with other providers. Discharge Instructions Please refer to the electronic Patient Visit Report (Discharge Instructions) for additional information. Additional Copies To [facility]
[2017-07-19] MEDS ORDERED: HYDROCHLOROTHIAZIDE 25 MG TAB PO SCH (09:00)
== END 2017-07-18 16:08 | DRG 372 ==
LOC: EDBD 20:13 → C.EDC 20:17 → C.2T 22:50 → ENRESERV 23:12
PROVIDERS: ADMIT Internal Medicine; ATTEND Hospitalist
PROC: 0DB68ZX Excision of Stomach, Via Natural or Artificial Opening Endoscopic, Diagnostic (ICD-10-PCS; principal; 2017-07-14 16:20)
DX: A04.72 Enterocolitis due to Clostridium difficile, not specified as recurrent (principal); N39.0 Urinary tract infection, site not specified; Z68.41 Body mass index [BMI] 40.0-44.9, adult; D62 Acute posthemorrhagic anemia; J96.10 Chronic respiratory failure, unspecified whether with hypoxia or hypercapnia; K92.1 Melena; K25.9 Gastric ulcer, unspecified as acute or chronic, without hemorrhage or perforation; E11.43 Type 2 diabetes mellitus with diabetic autonomic (poly)neuropathy; E11.65 Type 2 diabetes mellitus with hyperglycemia; F32.9 Major depressive disorder, single episode, unspecified; J44.9 Chronic obstructive pulmonary disease, unspecified; I25.10 Atherosclerotic heart disease of native coronary artery without angina pectoris; N18.3 Chronic kidney disease, stage 3 (moderate); E66.01 Morbid (severe) obesity due to excess calories; E11.22 Type 2 diabetes mellitus with diabetic chronic kidney disease; G47.33 Obstructive sleep apnea (adult) (pediatric); I12.9 Hypertensive chronic kidney disease with stage 1 through stage 4 chronic kidney disease, or unspecified chronic kidney disease; E78.5 Hyperlipidemia, unspecified; K21.9 Gastro-esophageal reflux disease without esophagitis; Z79.2 Long term (current) use of antibiotics; Z79.4 Long term (current) use of insulin; Z79.82 Long term (current) use of aspirin; Z79.899 Other long term (current) drug therapy; Z88.1 Allergy status to other antibiotic agents; Z88.2 Allergy status to sulfonamides; Z83.3 Family history of diabetes mellitus